=== PATIENT | female | born 1950 | race Hispanic/Latino ===

== ENCOUNTER 2017-01-24 14:00 | Emergency (ER) | payer MEDICARE ==
[~2017-01-24] VITALS: Ht 152.4 cm; Wt 57.2 kg
[2017-01-24] MEDS ORDERED: DIATRIZOATE MEGL/DIATRIZOA SOD 30 ML BTL PO ONE (14:57)
[2017-01-24 15:14] LABS: BILIRUBIN,URINE NEGATIVE (NEGATIVE); KETONES,URINE NEGATIVE (NEGATIVE); LEUKOCYTE ESTERASE ,URINE NEGATIVE (NEGATIVE); NITRITE,URINE NEGATIVE (NEGATIVE); PROTEIN,URINE DIPSTICK NEGATIVE (NEGATIVE); URINE UROBILINOGEN 0.2 mg/dL (0.2 - 1)
[2017-01-24 15:15] LABS: CLARITY,URINE SL CLOUDY (CLEAR); COLOR,URINE YELLOW (YELLOW)
[2017-01-24 15:19] LABS: BASOPHILS % 0.4 % (0.0-1.0); EOSINOPHILS # (AUTO) 0.1 (0.0-0.4); EOSINOPHILS % 0.9 % (0.0-6.0); HEMATOCRIT 44.7 % (34.2-44.1); HEMOGLOBIN 14.9 g/dL (12.0-16.0); LYMPHOCYTES # (AUTO) 2.3 (1.0-3.2); LYMPHOCYTES % 23.4 % (18.0-39.1); MEAN CORPUSCULAR HEMOGLOBIN 29.9 pg (28-32); MEAN CORPUSCULAR HGB CONC 33.3 g/dL (31-35); MEAN CORPUSCULAR VOLUME 89.8 fL (81-99); MONOCYTES # (AUTO) 0.4 (0.2-0.8); MONOCYTES % 4.6 % (4.4-11.3); NEUTROPHILS # (AUTO) 6.8 (2.1-6.9); NEUTROPHILS % 70.2 % (38.7-80.0); PLATELET COUNT 305 x10e3/uL (140-360); RED BLOOD COUNT 4.98 x10e6/uL (3.6-5.1); RED CELL DISTRIBUTION WIDTH 12.9 % (11.7-14.4)
[2017-01-24 15:37] LABS: BACTERIA,URINE RARE /HPF; EPITHELIAL CELLS,URINE RARE /LPF; RBC,URINE 0-5 /HPF (0-5); WBC,URINE (MAN) 0-5 /HPF (0-5)
[2017-01-24 15:42] LABS: ALANINE AMINOTRANSFERASE 24 IU/L (0-55); ALBUMIN 4.2 g/dL (3.5-5.0); ALBUMIN/GLOBULIN RATIO 1.1 (0.8-2.0); ALKALINE PHOSPHATASE 66 IU/L (40-150); ANION GAP 11.3 mmol/L (8-16); BLOOD UREA NITROGEN 13 mg/dL (7-26); BUN/CREATININE RATIO 14 (6-25); CALCIUM 9.8 mg/dL (8.4-10.2); CARBON DIOXIDE 27 mmol/L (22-29); CHLORIDE 108 mmol/L (98-107); CREATININE, SERUM 0.91 mg/dL (0.57-1.11); EST GLOMERULAR FILTRATION RATE > 60 ML/MIN (60-); GLUCOSE 100 mg/dL (74-118); POTASSIUM 3.3 mmol/L (3.5-5.1); SODIUM 143 mmol/L (136-145)
--- NOTE | 2017-01-24 16:45 | Diagnostic Imaging Report ---
EXAM: CT Abdomen and Pelvis WITH contrast INDICATION: Abdominal pain COMPARISON: None. TECHNIQUE: Abdomen and pelvis were scanned utilizing a multidetector helical scanner from the lung base to the pubic symphysis after administration of contrast. Coronal and sagittal reformations were obtained. Protocol: General survey IV CONTRAST: 100 mL of Isovue 370 ORAL CONTRAST: Gastroview 30 cc COMPLICATIONS: None RADIATION DOSE: Total Exam DLP: 214.6 mGy*cm. CTDIvol has been reviewed. It is below the limits set by the Radiation Protocol Committee (RPC). FINDINGS: LINES: None. Lower thorax: No parenchymal abnormality. No pneumothorax. No pleural effusion. Liver: No focal mass. No hepatomegaly. Normal parenchyma. The hepatic and portal veins are patent. Gallbladder: No gallstones. No gallbladder distention. Biliary tree: No intrahepatic duct dilation. No extrahepatic duct dilation. Spleen: No splenomegaly. No focal mass. Pancreas: Normal parenchymal enhancement. No focal mass. Normal pancreatic duct. No peripancreatic inflammatory changes. Kidneys: No obstructing calculi. No hydronephrosis. No solid enhancing mass. No cysts. No perinephric soft tissue inflammatory changes. Adrenal glands: 8.4 mm nodule in the left adrenal gland is indeterminate. No right adrenal nodule. Bladder: Normal urinary bladder. Pelvic organs: Normal left ovary. Hysterectomy. Right ovary is not visualized.. GI: No bowel wall thickening. No air-fluid levels. The stomach and small bowel are normal. The colon is normal. Normal appendix. A moderate amount of retained feces limits intraluminal evaluation of the colon. Peritoneum/retroperitoneum: No pneumoperitoneum. No ascites. No drainable fluid collection. Lymph nodes: No lymphadenopathy. Several subcentimeter noncalcified nonnecrotic lymph nodes are present in the mesentery. Vessels: The abdominal aorta and iliac vessels are patent. The celiac, superior mesenteric, and inferior mesenteric arteries are patent. Single bilateral renal arteries are patent. . Bones: No focal abnormality. . Soft tissues: No focal abnormality. IMPRESSION: No acute abnormality of the abdomen and pelvis. Indeterminate left adrenal nodule. Nonemergent CT of the abdomen with adrenal mass protocol may provide additional formation for further characterization. Signed by: Dr. Zackary Brewster M.D. on 01/24/2017 4:41 PM
[2017-01-24] MEDS ORDERED: IOPAMIDOL 370 MG/ML 200 ML INFUS..BTL INJ ONE (16:48)
[2017-01-24] MEDS ORDERED: SODIUM CHLORIDE 0.9% 50ML 50 ML ONE (16:48)
== END 2017-01-24 17:46 | disposition home or self-care (01) ==
LOC: ER 14:00
DX: R10.30 Lower abdominal pain, unspecified (principal)
CPT/HCPCS: 36415; 74177; 80053; 81001; 85025; 87086; 99284; Q9967

== ENCOUNTER → 2017-03-27 | Day surgery (SDC) | payer MEDICARE ==
[2017-03-24 14:57] LABS: BASOPHILS # (AUTO) 0.1 (0.0-0.1); BASOPHILS % 0.6 % (0.0-1.0); EOSINOPHILS # (AUTO) 0.1 (0.0-0.4); EOSINOPHILS % 1.6 % (0.0-6.0); HEMATOCRIT 44.2 % (34.2-44.1); HEMOGLOBIN 14.8 g/dL (12.0-16.0); LYMPHOCYTES # (AUTO) 3.4 (1.0-3.2); MEAN CORPUSCULAR HEMOGLOBIN 30.1 pg (28-32); MEAN CORPUSCULAR HGB CONC 33.5 g/dL (31-35); MONOCYTES # (AUTO) 0.4 (0.2-0.8); MONOCYTES % 4.2 % (4.4-11.3); NEUTROPHILS # (AUTO) 4.9 (2.1-6.9); NEUTROPHILS % 55.4 % (38.7-80.0); PLATELET COUNT 236 x10e3/uL (140-360); RED BLOOD COUNT 4.91 x10e6/uL (3.6-5.1); RED CELL DISTRIBUTION WIDTH 13.1 % (11.7-14.4)
[~2017-03-27] MED LIST: ATORVASTATIN CA20 MG PO; CALCIUM PO; CLARITIN-D 241 EACH PO; DICYCLOMINE HCL10 MG PO; FENTANYL CITRATE/PF 100MCG/2 ML INJ ONE; FOSAMAX70 MG PO; HYOSCYAMINE SULFATE 0.5 MG/ML AMP ONE; LIDOCAINE HCL 2% LOCAL INJ 5 ML SDV VIAL INJ ONE; MIDAZOLAM HCL 2 MG/2 ML VIAL ONE; OMEPRAZOLE40 MG PO; PROPOFOL IV EMULSION 10 MG/ML 50 ML VIAL ONE
--- OUTSIDE RECORDS SUMMARY | 2017-03-27 08:16 | XMS REPORT ---
[facility] Address Unknown Phone Unavailable Care Team Providers Care Life Sciences Teacher Name Role Phone NELDA JUAREZ Unavailable Unavailable Problems This patient has no known problems. Allergies, Adverse Reactions, Alerts This patient has no known allergies or adverse reactions. Medications This patient has no known medications. Results Test Description Test Time Test Comments Text Results Atomic Results Result Comments CT ABDOMEN/PELVIS W [place] [id number] [place] [id number] Patient Name: RICH CHEEK MR #: [id number] : 1950 Age/Sex: 66/F Req #: [id number] Adm Physician: Ordered by: NELDA JUAREZ MD Report #: [id number] Location: ER Room/Bed: Procedure: [id number] CT/CT ABDOMEN/PELVIS W Exam Date: 01/24/17 Exam Time : 1610 REPORT STATUS: Signed EXAM: CT Abdomen and Pelvis WITH contrast INDICATION: Abdominal pain COMPARISON: None. TECHNIQUE: Abdomen and pelvis were scanned utilizing a multidetector helical scanner from the lung base to the pubic symphysis after administration of contrast. Coronal and sagittal reformations were obtained. Protocol: General survey IV CONTRAST: 100 mL of Isovue 370 ORAL CONTRAST: Gastroview 30 cc COMPLICATIONS: None RADIATION DOSE: Total Exam DLP: 214.6 mGy*cm. CTDIvol has been reviewed. It is below the limits set by the Radiation Protocol Committee (RPC). FINDINGS: LINES: None. Lower thorax: No parenchymal abnormality. No pneumothorax. No pleural effusion. Liver: No focal mass. No hepatomegaly. Normal parenchyma. The hepatic and portal veins are patent. Gallbladder: No gallstones. No gallbladder distention. Biliary tree: No intrahepatic duct dilation. No extrahepatic duct dilation. Spleen: No splenomegaly. No focal mass. Pancreas: Normal parenchymal enhancement. No focal mass. Normal pancreatic duct. No peripancreatic inflammatory changes. Kidneys: No obstructing calculi. No hydronephrosis. No solid enhancing mass. No cysts. No perinephric soft tissue inflammatory changes. Adrenal glands: 8.4 mm nodule in the left adrenal gland is indeterminate. No right adrenal nodule. Bladder: Normal urinary bladder. Pelvic organs: Normal left ovary. Hysterectomy. Right ovary is not visualized.. GI: No bowel wall thickening. No air-fluid levels. The stomach and small bowel are normal. The colon is normal. Normal appendix. A moderate amount of retained feces limits intraluminal evaluation of the colon. Peritoneum/retroperitoneum: No pneumoperitoneum. No ascites. No drainable fluid collection. Lymph nodes: No lymphadenopathy. Several subcentimeter noncalcified nonnecrotic lymph nodes are present in the mesentery. Vessels: The abdominal aorta and iliac vessels are patent. The celiac, superior mesenteric, and inferior mesenteric arteries are patent. Single bilateral renal arteries are patent. . Bones: No focal abnormality. . Soft tissues: No focal abnormality. IMPRESSION: No acute abnormality of the abdomen and pelvis. Indeterminate left adrenal nodule. Nonemergent CT of the abdomen with adrenal mass protocol may provide additional formation for further characterization. Signed by: Dr. Ellie Middleton M.D. on 01/24/2017 4:41 PM Dictated By: ELLIE MIDDLETON MD 40 Transcribed By: TRACEY on 01/24/171640 COPY TO: NELDA JUAREZ MD
--- NOTE | 2017-03-27 11:43 | Operative Report ---
DATE OF PROCEDURE: March 27, 2017 REFERRING PHYSICIAN: Brian Del Rio MD PROCEDURES PERFORMED 1. Esophagogastroduodenoscopy with esophageal dilatation. 2. Colonoscopy with polypectomy. INDICATIONS FOR ESOPHAGOGASTRODUODENOSCOPY: Dysphagia, history of heartburn. INDICATIONS FOR COLONOSCOPY: Colorectal cancer screening. MEDICATION: Patient was done under MAC. Please see anesthesiologist's note. PROCEDURE: With the patient in left lateral decubitus position, flexible fiberoptic Olympus gastroscope was introduced into the esophagus under direct visualization without any difficulty. There was some patchy erythema noted in distal esophagus. There was a mild stricture noted at the GE junction that was dilated to a size 52-Israeli Guzman. The scope was then advanced with ease into the stomach. Mucosa overlying the antrum and the body revealed some patchy erythema and lsum-sb-rydeevky edema and biopsies were obtained sent to stain for H. pylori. An approximately 7-mm submucosal nodule was noted in the antrum that was biopsied. The pylorus was of normal contour and shape. It was intubated with ease and the scope was advanced all way to the 2nd portion of the duodenum. The scope was then withdrawn slowly and mucosa overlying the proximal 2nd portion and the duodenal bulb grossly appeared to be within normal limits. The scope was then withdrawn back into the stomach and retroflexion mucosa overlying the fundus and cardia appeared to be within normal limits. The scope was then straightened out. The stomach was decompressed. Scope was subsequently withdrawn. Patient tolerated the procedure well. IMPRESSION 1. Distal esophagitis. 2. Esophageal stricture at gastroesophageal junction dilated to a size 52-Israeli Guzman. 3. Gastritis biopsied. Biopsies sent to stain for H. pylori. 4. Approximately 7-mm submucosal nodule with normal overlying mucosa biopsied. PLAN: Follow up histology. Initiate Protonix 40 mg 1 p.o. q.a.m. a.c. Patient was then turned around and, after adequate lubrication of the anal canal, a flexible fiberoptic Olympus colonoscope was inserted into the rectum with ease and advanced all the way to the cecum. The scope was then withdrawn slowly. Mucosa overlying the cecum appeared to be within normal limits. One polyp was snared from the ascending colon. Two polyps were hot biopsied from the transverse colon. The descending sigmoid and rectum grossly appeared to be within normal limits. The scope was then retroflexed into the distal rectum and small internal hemorrhoids were noted, none of which was actively bleeding. The scope was then straightened out and was subsequently withdrawn. Patient tolerated the procedure well. IMPRESSION 1. Ascending colon polyp, snared. 2. Transverse colon polyps x2, hot biopsied. 3. Internal hemorrhoids, none actively bleeding. PLAN: Follow up histology. Initiate high-fiber low-fat diet. Initiate high-fiber supplement. Patient will need a followup colonoscopy in 3 years. Job#: [id number] VAS cc:Dr. Brian Del Rio
== END | disposition home or self-care (01) ==
LOC: OR 08:14
PROVIDERS: ATTEND Internal Medicine Gastroenterology
DX: Z12.11 Encounter for screening for malignant neoplasm of colon (principal); K29.50 Unspecified chronic gastritis without bleeding; D12.2 Benign neoplasm of ascending colon; K20.9 Esophagitis, unspecified; K22.2 Esophageal obstruction; K31.89 Other diseases of stomach and duodenum; K21.9 Gastro-esophageal reflux disease without esophagitis; K64.8 Other hemorrhoids; M54.9 Dorsalgia, unspecified; E78.5 Hyperlipidemia, unspecified; Z01.810 Encounter for preprocedural cardiovascular examination; Z01.812 Encounter for preprocedural laboratory examination
CPT/HCPCS: 36415; 43239; 43450; 45384; 45385; 85025; 88305; 88312; 93005; J1980; J2001; J2250

== ENCOUNTER 2017-04-01 13:50 | Emergency (ER) | payer MEDICARE ==
[~2017-04-01] VITALS: Ht 152.4 cm; Wt 57.2 kg
[~2017-04-01 13:50] MED LIST changes: -FENTANYL CITRATE/PF 100MCG/2 ML INJ ONE; -HYOSCYAMINE SULFATE 0.5 MG/ML AMP ONE; -LIDOCAINE HCL 2% LOCAL INJ 5 ML SDV VIAL INJ ONE; -MIDAZOLAM HCL 2 MG/2 ML VIAL ONE; -PROPOFOL IV EMULSION 10 MG/ML 50 ML VIAL ONE
--- NOTE | 2017-04-01 16:50 | Diagnostic Imaging Report ---
History: Throat pain status post EGD Comparison studies: None Technique: Axial images were obtained from the skull base to the thoracic inlet. Coronal and sagittal images reconstructed from the axial data. Intravenous contrast: None Findings: Evaluation of the neck is limited due to the absence of intravenous contrast. In spite of this limitation, Soft tissues: No abnormalities. Lymph nodes: No radiographically significant adenopathy. Vessels: Cannot evaluate. Glands (thyroid, parotid and submandibular): Normal in size and symmetric. No masses. Orbits: No abnormalities. A right lens prosthesis is seen. Paranasal sinuses: Clear. Temporal bones: No abnormalities. Skull base and facial bones: Intact. Cervical spine: Mild degenerative changes from C5 through C7. Image thorax: 2 cm round glass opacity in the posterior left upper lobe (series 4 image 13). IMPRESSION: 1. No findings to suggest esophageal perforation on this exam. Please note, a CT Neck without contrast is suboptimal for the evaluation of esophageal perforation. A esophagogram may be performed for further evaluation if clinically indicated. 2. 2 cm groundglass opacity in the left upper lobe. Per the latest Demar criteria, a follow-up CT chest in 6 months is recommended. Signed by: Dr. Alyssa Butler M.D. on 04/01/2017 9:39 PM
[2017-04-01] MEDS ORDERED: DIATRIZOATE MEGL/DIATRIZOA SOD 120 ML BTL PO ONE (18:23)
--- NOTE | 2017-04-01 19:07 | Diagnostic Imaging Report ---
PROCEDURE: Single contrast esophagram TECHNIQUE: Under fluoroscopic guidance, the patient swallowed barium and multiple images were obtained. Radiation dose: Fluoroscopy time: 1.5 minutes Dose (Kerma) Area Product: 1.805 mGy*cm2 COMPARISON: No relevant priors. Correlation is made with CT of the neck performed 1537 hrs. INDICATIONS: EGD 03/27/17 with subsequent pharyngeal pain when swallowing solids but not liquids. FINDINGS: Pharynx: The patient swallows normally. The pharynx appears normal. Esophagus: There is no evidence of perforation. The esophagus is normally distensible and the mucosa was within normal limits. No stricture. Esophageal motility is within normal limits. Gastroesophageal junction: There is no evidence of hiatal hernia. IMPRESSION: No evidence of esophageal perforation or other fluoroscopic abnormality to explain dysphagia. Dictated by: Dennys Ackerman M.D. on 04/01/2017 at 19:06 Electronically approved by: Dennys Ackerman M.D. on 04/01/2017 at 19:06
[2017-04-01 19:57] VITALS: BP 149/93
== END 2017-04-01 20:00 | disposition home or self-care (01) ==
LOC: ER 13:50
DX: R07.0 Pain in throat (principal); J02.9 Acute pharyngitis, unspecified; E78.5 Hyperlipidemia, unspecified; M81.0 Age-related osteoporosis without current pathological fracture
CPT/HCPCS: 70490; 74220; 99283; Q9963

== ENCOUNTER → 2017-09-08 | Outpatient (CLI) | payer MEDICARE ==
--- NOTE | 2017-09-08 09:33 | Diagnostic Imaging Report ---
PROCEDURE: CT CHEST WITHOUT CONTRAST CT scan of the chest WITHOUT intravenous contrast, using standard protocol. TECHNIQUE: The chest was scanned utilizing a multidetector helical scanner from the apex to the level of the adrenal glands. No IV contrast was administered because of referring physician request. Coronal and sagittal multiplanar reformations were obtained. COMPARISON: CT neck soft tissue 04/01/2017. INDICATIONS: FOLLOW UP ON LUNG NODULE FINDINGS: Lines/tubes: None. Lungs and Airways: Marginal interval increase in size of mixed groundglass and solid nodule in the apicoposterior segment of the left upper lobe, abutting the major fissure, now measuring 1.9 cm oblique AP by 1.7 cm oblique transverse (previously 1.5 cm oblique AP by 1.6 cm oblique transverse). Subcentimeter groundglass nodule anteriorly in the right upper lobe (series 3, image 22, is unchanged in size compared to the prior CT. Right upper lobe calcified granuloma. Juxtapleural-paramediastinal fibrotic changes in the inferior lingula and medial segment of the right middle lobe. 3-4 mm groundglass opacity in the lateral aspect of the right lower lobe (series 3 image 83). 3-4 mm solid nodule superior segment right lower lobe (series 3 image 55). No consolidation. No bronchiectasis. Trachea, mainstem bronchi, and central lobar and segmental bronchi are patent. Pleura: No pleural effusion or pneumothorax. Heart and mediastinum: The visualized portions of the thyroid gland appear normal. No axillary, hilar, or mediastinal lymphadenopathy by size criteria. Pulmonary outflow tract is of normal caliber. No ectasia or aneurysmal dilatation of the thoracic aorta. Great vessel origins are normal in caliber and configuration. Atherosclerotic coronary artery calcifications. No paracardial effusion. Normal heart size. Soft tissues: No focal soft tissue abnormalities Abdomen: Visualized portions of the liver, spleen, adrenals, pancreas, and upper poles of the kidneys are unremarkable. Bones: No osseous destructive lesions. 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 Tissue diagnosis is suggested. Additional subcentimeter solid and groundglass nodules may be assessed for stability by subsequent cross sectional imaging examinations. Atherosclerotic vascular disease. Dictated by: Dez Benito M.D. on 09/08/2017 at 9:38 Electronically approved by: Dez Benito M.D. on 09/08/2017 at 9:38
--- NOTE | 2017-09-08 11:17 | Diagnostic Imaging Report ---
PROCEDURE:BONE DXA DUAL ENERGY INDICATION: Postmenopausal osteoporosis screening The patient history questionnaire was completed and is available on PACS. COMPARISON:None. FINDINGS: Evaluation of the left hip and lumbar spine was performed utilizing DEXA Hologic bone densitometer. The study is technically adequate. The patient's fracture risk is compared to an age-matched control. The patient denies prior surgery/fracture of the spine, hips or forearm. Left femoral neck bone mineral density: 0.706 g/cm2, T-score is -1.4, Z-score is 0.1. Left total hip bone mineral density: 0.807 g/cm2, T-score is -1.2, Z-score is 0.0. Lumbar spine total bone mineral density: 0.765 g/cm2, T-score is -2.6, Z-score is -0.7. IMPRESSION: Bone mineralization by WHO Classification is osteoporosis. Fracture risk is high. Correlate clinically for the necessity and timing of the next bone mineral density study. Dictated by: Enrico Meza M.D. on 09/08/2017 at 11:22 Electronically approved by: Enrico Meza M.D. on 09/08/2017 at 11:22
== END ==
LOC: DX 08:03
PROVIDERS: ATTEND Internal Medicine
DX: M81.0 Age-related osteoporosis without current pathological fracture (principal); R91.8 Other nonspecific abnormal finding of lung field
CPT/HCPCS: 71250; 77080

== ENCOUNTER → 2017-10-15 | Outpatient (CLI) | payer MEDICARE ==
[~2017-10-15] MED LIST changes: +FENTANYL CITRATE/PF 100MCG/2 ML INJ ONE; +MIDAZOLAM HCL 2 MG/2 ML VIAL ONE
[2017-10-15 08:57] LABS: INR 1.02; PROTHROMBIN TIME 12.6 seconds (11.9-14.5)
[2017-10-15 08:58] LABS: PARTIAL THROMBOPLASTIN TIME 25.5 seconds (23.8-35.5)
--- NOTE | 2017-10-15 12:48 | Diagnostic Imaging Report ---
EXAMINATION: CHEST XRAY POST PROCEDURE INDICATION: Status post lung biopsy COMPARISON: Same day CT lung biopsy 10/15/17; CT Chest without contrast 09/08/17. FINDINGS: TUBES and LINES: None. LUNGS: Lungs are well inflated. There is no evidence of pneumonia or pulmonary edema. Nodular opacity in the left upper lobe. Additional lung nodules described on chest CT from 09/08/17 are not well seen by radiograph. PLEURA: No pleural effusion or pneumothorax. HEART AND MEDIASTINUM: The cardiomediastinal silhouette is unremarkable. BONES AND SOFT TISSUES: No acute osseous lesion. Soft tissues are unremarkable. UPPER ABDOMEN: No free air under the diaphragm. IMPRESSION: No evidence of pneumothorax status post left sided lung nodule biopsy. Nodular opacity in the left upper lobe, corresponding to known lung nodule and perilesional hemorrhagic products noted on same day lung biopsy CT. Signed by: Dr. Daniel Cook MD on 10/15/2017 12:45 PM
--- NOTE | 2017-10-15 15:48 | Diagnostic Imaging Report ---
PROCEDURE: CT GUIDED BIOPSY OF LEFT UPPER LOBE PULMONARY NODULE COMPARISON: None. INDICATIONS: LEFT UPPER LOBE PULMONARY NODULE MEDICATIONS:15 ml 1% lidocaine EBL: < 5 ml SPECIMEN: Given to pathology DESCRIPTION OF PROCEDURE: Informed consent was obtained. The patient was positioned in prone position with the left shoulder internally rotated to move the scapula laterally. The CT was angled at 15 degrees initially and subsequently 20 degrees to obtain or nurse manager images of the left upper lobe nodule and attempt to avoid crossing the major fissure. Once a satisfactory trajectory was determined, the patient's left upper back was prepped and draped in standard sterile fashion. The skin was anesthetized with lidocaine. Using CT guidance, a 12.5 cm x 19 gauge Chiba needle was advanced into the lesion. The patient took a deep breath during needle insertion into the pleural space and the major fissure position changed, therefore leading the needle to cross the major fissure into the lesion. A single 22 gauge fine needle aspirate was obtained. Subsequently, several core biopsy samples with a 20 gauge device was taken with CT guidance. Pathology was present for the procedure and confirmed satisfactory sample for diagnosis. The introducer needle was removed and a sterile bandage was placed. Repeat CT demonstrated a small amount of perilesional hemorrhagic products and a trace pneumothorax. The patient was positioned supine onto the stretcher post procedurally. The patient's vital signs were stable post procedurally and there was no evidence of immediate complication. CONCLUSION: CT guided left upper lobe pulmonary nodule biopsy as above. Dictated by: CELIA DEAN M.D. on 10/15/2017 at 15:26 Electronically approved by: CELIA DEAN M.D. on 10/15/2017 at 15:26
--- NOTE | 2017-10-15 15:54 | Diagnostic Imaging Report ---
EXAMINATION: CHEST XRAY POST PROCEDURE INDICATION: Status post lung biopsy. COMPARISON: Chest radiograph 10/15/17 at 1224 PM. FINDINGS: TUBES and LINES: None. LUNGS: Lungs are well inflated. There is no evidence of pneumonia or pulmonary edema. Nodular opacity in the left upper lobe. Additional lung nodules described on chest CT from 09/08/17 are not well seen by radiograph. PLEURA: No pleural effusion or pneumothorax. HEART AND MEDIASTINUM: The cardiomediastinal silhouette is unremarkable. BONES AND SOFT TISSUES: No acute osseous lesion. Soft tissues are unremarkable. UPPER ABDOMEN: No free air under the diaphragm. IMPRESSION: No evidence of pneumothorax status post left sided lung nodule biopsy. Similar appearance of nodular opacity in the left upper lobe, corresponding to known lung nodule and perilesional hemorrhagic products noted on same day lung biopsy CT. Signed by: Dr. Daniel Cook MD on 10/15/2017 3:51 PM
== END ==
LOC: CT 08:18
PROVIDERS: ATTEND Internal Medicine Critical Care Medicine
DX: R91.1 Solitary pulmonary nodule (principal)
CPT/HCPCS: 32405; 36415; 71045; 77012; 85049; 85610; 85730; 88112; 88305; J2250

== ENCOUNTER 2017-12-09 17:33 | Inpatient (IN) | payer MEDICARE ==
[2017-12-09] VITALS (8 sets, daily range): BP systolic 144–159; BP diastolic 60–87
[~2017-12-09] VITALS: Ht 152.4 cm; Wt 63.8 kg
[~2017-12-09 17:33] MED LIST changes: -FENTANYL CITRATE/PF 100MCG/2 ML INJ ONE; -MIDAZOLAM HCL 2 MG/2 ML VIAL ONE
--- OUTSIDE RECORDS SUMMARY | 2017-12-09 17:36 | XMS REPORT | Clinical Summary ---
Author Author [facility] Address Unknown Phone Unavailable Care Team Providers Care Desizing Machine Offbearer Name Role Phone Asked, No Pcp PCP Unavailable Allergies Active Allergy Reactions Severity Noted Date Comments Codeine 11/26/2017 WEAKNESS AND FEELS LIKE SHE IS GOING TO FAINT. Current Medications Prescription Sig. Disp. Refills Start End Date Status Date atorvastatin (LIPITOR) 40 Take 40 mg by mouth Active MG tablet daily. omeprazole (PriLOSEC) 40 Take 40 mg by mouth Active MG capsule daily. ergocalciferol (VITAMIN Take 50,000 Units by Active D2) 50,000 unit capsule mouth once a week. CALCIUM ORAL Take 600 mg by mouth 3 Active (three) times a day as needed. alendronate (FOSAMAX) 70 Take 70 mg by mouth every Active MG tablet 7 days. Take in the morning with a full glass of water on an empty stomach, do NOT take anything else by mouth or lie down for the next 30 min. loratadine (CLARITIN) 10 Take 10 mg by mouth Active mg tablet daily. acetaminophen (TYLENOL) Take 2 tablets (650 mg 30 tablet 0 12/08/19 01/07/20 Active 325 MG tabletIndications: total) by mouth every 6 18 18 Fever (six) hours as needed for fever (GREATER than 100.4) for up to 30 days. traMADol (ULTRAM) 50 mg Take 1 tablet (50 mg 30 tablet 0 12/08/19 12/15/19 Active tablet total) by mouth every 6 18 18 (six) hours as needed for moderate pain for up to 7 days. Active Problems Problem Noted Date Nodule of left lung 12/01/2017 Encounters Date Type Specialty Care Team Description 12/01/2017 [facility] Cardiology Elio Mabry MD Nodule of left lung - Encounter (Primary Dx); 12/07/2017 Mass in chest 12/01/2017 Procedure Pass Cardiothoracic Surgery 12/01/2017 Surgery Cardiothoracic Surgery Elio Mabry MD CERVICAL MEDIASTINOSCOPY 11/26/2017 Pre-Admit Pre-Admission Testing Elio Mabry MD Preop testing (Primary Testing Dx) Appointment 11/26/2017 Anesthesia Cardiothoracic Surgery Fracisco Michele PROPERTY MASTER Event after 12/08/2016 Social History Tobacco Use Types Packs/Day Years Used Date Never Smoker Smokeless Tobacco: Never Used Alcohol Use Drinks/Week oz/Week Comments No Sex Assigned at Date Recorded Not on file Last Filed Vital Signs Vital Sign Reading Time Taken Blood Pressure 115/71 12/07/2017 11:34 AM CDT Pulse 73 12/07/2017 11:34 AM CDT Temperature 36.7 C (98 F) 12/07/2017 11:34 AM CDT Respiratory Rate 19 12/07/2017 11:34 AM CDT Oxygen Saturation 100% 12/07/2017 11:34 AM CDT Inhaled Oxygen - - Concentration Weight 58.1 kg (128 lb 1.6 oz) 12/07/2017 4:35 AM CDT Height 152.4 cm (5') 12/01/2017 6:08 AM CDT Body Mass Index 25.02 12/07/2017 4:35 AM CDT Plan of Treatment Health Maintenance Due Date Last Done Comments BREAST CANCER SCREENING 07/11/2001 COLON CANCER SCREENING 07/11/2001 SHINGRIX VACCINE (#1) 07/11/2001 ZOSTER VACCINE 2011 PNEUMOCOCCAL 07/11/2016 POLYSACCHARIDE VACCINE AGE 65 AND OVER PNEUMOCOCCAL-13 07/11/2016 INFLUENZA VACCINE 09/09/2017 Implants Implanted Type Area Ui Designer Device Expiration Model / Identifier Date Serial / Lot Clip Ligtng Davidck Hemoclip Plus W/ Medical N/A: N/A TELEFLEX [id number] / Tape Ti Lg - [id number] Clips for MEDICAL / Implanted: 12/01/2017 (Quantity not Internal on file) Use [place] Perph Vasclr Ptfe 1.2x10cm Vascular N/A: N/A BARD PERIPHERAL 08/06/2022 [id number] / 1.65mm - [id number] Graft VASCULAR / Implanted: 12/01/2017 (Quantity not [id number] on file) Procedures Procedure Name Priority Date/Time Associated Diagnosis Comments ESTIMATED GFR Routine 12/07/2017 Results for this 4:47 AM CDT procedure are in the results section. BASIC METABOLIC PANEL Routine 12/07/2017 Results for this 4:47 AM CDT procedure are in the results section. PHOSPHORUS LEVEL Routine 12/07/2017 Results for this 4:47 AM CDT procedure are in the results section. MAGNESIUM LEVEL Routine 12/07/2017 Results for this 4:47 AM CDT procedure are in the results section. HC COMPLETE BLD COUNT Routine 12/07/2017 Results for this W/AUTO DIFF 4:47 AM CDT procedure are in the results section. XR CHEST 1 VW PORTABLE Routine 12/04/2017 Results for this 1:39 PM CDT procedure are in the results section. XR CHEST 1 VW PORTABLE Routine 12/04/2017 Results for this 8:43 AM CDT procedure are in the results section. XR CHEST 1 VW PORTABLE Routine 12/03/2017 Results for this 8:49 AM CDT procedure are in the results section. ESTIMATED GFR Routine 12/03/2017 Results for this 5:51 AM CDT procedure are in the results section. PHOSPHORUS LEVEL Routine 12/03/2017 Results for this 5:51 AM CDT procedure are in the results section. IONIZED CALCIUM Routine 12/03/2017 Results for this 5:51 AM CDT procedure are in the results section. MAGNESIUM LEVEL Routine 12/03/2017 Results for this 5:51 AM CDT procedure are in the results section. CBC HEMOGRAM Routine 12/03/2017 Results for this 5:51 AM CDT procedure are in the results section. BASIC METABOLIC PANEL Routine 12/03/2017 Results for this 5:51 AM CDT procedure are in the results section. POC GLUCOSE Routine 12/02/2017 Results for this 5:40 PM CDT procedure are in the results section. POC GLUCOSE Routine 12/02/2017 Results for this 11:53 AM CDT procedure are in the results section. POC GLUCOSE Routine 12/02/2017 Results for this 7:48 AM CDT procedure are in the results section. XR CHEST 1 VW PORTABLE Routine 12/02/2017 Results for this 7:01 AM CDT procedure are in the results section. POC GLUCOSE Routine 12/02/2017 Results for this 4:11 AM CDT procedure are in the results section. POC GLUCOSE Routine 12/02/2017 Results for this 12:05 AM CDT procedure are in the results section. POC GLUCOSE Routine 12/01/2017 Results for this 8:06 PM CDT procedure are in the results section. ECG 12-LEAD STAT 12/01/2017 Results for this 6:01 PM CDT procedure are in the results section. POC GLUCOSE Routine 12/01/2017 Results for this 4:24 PM CDT procedure are in the results section. XR CHEST 1 VW PORTABLE STAT 12/01/2017 Results for this 4:09 PM CDT procedure are in the results section. SURGICAL PATHOLOGY Routine 12/01/2017 Results for this REQUEST 9:32 AM CDT procedure are in the results section. CENTRAL LINE Routine 12/01/2017 8:57 AM CDT Procedure Note - Jose Raul Parr MD - 12/01/2017 8:57 AM CDT Central line Performed by: JACOB ALEXANDER Authorized by: JOSE RAUL PARR Patient Location: OR Start Time: 12/01/2017 8:20 AM End Time: 12/01/2017 8:27 AM Staff: Anesthesio logist: JOSE RAUL PARR Resident/C RNA/AA: JENN EWING Performed by: Anesthesio logisjanis Preprocedu re:patient identified , IV checked, site and side verified, risks and benefits discussed, procedure verified, surgical consent complete, patient position confirmed, monitors and equipment checked and pre-op evaluation complete MSBT: antiseptic used during central venous catheter insertion, all elements of maximal sterile barrier technique followed, hand hygiene performed prior to central venous catheter insertion, cap/gown used by other personnel during central venous catheter insertion, solutions labeled and all ports not used during insertion clamped Indication s: Indication s: Vascular access Anesthesia : Anesthesia : General Procedure details: Patient position: Trendelenb urg Catheter Type: Double lumen Catheter Size: 8 Fr Catheter Site: internal jugular vein Catheter site laterality : Left Ultrasound guidance used: Yes Ultrasound image saved: Yes Number of attempts: 1 Successful placement: Yes Guidewire removal: Guidewire removal is confirmed Guidewire removal witnessed by: JACOB ALEXANDER Post-proce dure: Post-proce dure: line sutured, sterile dressing applied per protocol and ports flushed with saline Post-proce dure: Blood cleaned with CHG and sterile caps on all hubs Assessment : Blood return through all ports and free fluid flow Patient tolerance: Patient tolerated the procedure well with no immediate complicati ons VT AN ELECTIVE Routine 12/01/2017 ENDOTRACHEAL AIRWAY 8:55 AM CDT Procedure Note - Jose Raul Parr MD - 12/01/2017 8:55 AM CDT Airway Date/Time: 12/01/2017 8:03 AM Performed by: JACOB ALEXANDER Authorized by: JOSE RAUL PARR Location: OR Urgency: Elective Difficult Airway: No Anesthesio logist: JOSE RAUL PARR Performed by: yonas sorensen Preoxygena ever with 100% O2: Yes C-spine Precaution s Maintained Throughout : Yes Mask Ventilatio n: Easy mask Final Airway Type: Endotrache al airway Final Endotrache al Airway: ETT Cuffed: Yes Technique Used: Direct laryngosco py Devices/Me thods Used in Placement: Intubatin g stylet Insertion Site: Oral Blade Type: Martin Laryngosco pe Blade/Vide olaryngosc ope Blade Size: 2 ETT Size (mm): 8.0 Cuff at minimum occlusion pressure: Yes Measured from: Teeth ETT to Teeth (cm): 21 Placement Verified by: CO2 detection and direct visualizat ion Laryngosco pic view: Grade IIa - partial view of glottis Rapid Sequence Induction (RSI): No Modified RSI: No Number of Attempts at Approach: 1 Atraumati c, no injury to teeth oropharynx or vocal cords ARTERIAL LINE Routine 12/01/2017 8:29 AM CDT Procedure Note - Jose Raul Parr MD - 12/01/2017 8:29 AM CDT Arterial line Performed by: JACOB ALEXANDER Authorized by: ELIO MABRY Staff: Yonas sorensen: JOSE RAUL PARR Resident/C RNA/AA: JACOB ALEXANDER Performed by: Yonas sorensen Pre-proced ure: patient identified , IV checked, site and side verified, risks and benefits discussed, procedure verified, surgical consent complete, patient position confirmed, monitors and equipment checked and pre-op evaluation complete MSBT: antiseptic used, all elements of maximal sterile barrier technique followed, hand hygiene performed, cap/gown used by other personnel and solutions labeled Indication s: Indication s: hemodynami c monitoring Anesthesia : Anesthesia : General Procedure Details: Arterial Line placement: Placed post induction Line placement site: Radial Line placement side: Right Arterial line gauge: 20 G Number of attempts: 1 Ultrasound guidance used: No Post-proce dure: Post-proce dure: Sterile dressing applied Post procedure circulatio n, sensation, movement: Normal Patient tolerance: Patient tolerated the procedure well with no immediate complicati ons ECG PRE/POST OP Routine 11/26/2017 Preop testing Results for this 12:40 PM CDT procedure are in the results section. ESTIMATED GFR Routine 11/26/2017 Results for this 12:21 PM CDT procedure are in the results section. COMPREHENSIVE METABOLIC Routine 11/26/2017 Preop testing Results for this PANEL 12:21 PM CDT procedure are in the results section. HC COMPLETE BLD COUNT Routine 11/26/2017 Preop testing Results for this W/AUTO DIFF 12:21 PM CDT procedure are in the results section. after 12/08/2016 Results * Estimated GFR (12/07/2017 4:47 AM) Only the most recent of 3 results within the time period is included. Estimated GFR >=90 mL/min/1.73 m2 [facility] DEPARTMENT OF Comment: PATHOLOGY AND [employer] GENOMIC MEDICINE rpretation G1 >=90 Normal or high G2 60-89Mildly decreased [id number] Mildly to moderately decreased [id number] Moderately to severely decreased G4 15-29Severely decreased G5 <15Kidney failure The eGFR was calculated using the Chronic Kidney Disease Epidemiology Collaboration (CKD-EPI) equation. Interpretation is based on recommendations of the National Kidney Foundation-Kidney Disease Outcomes Quality Initiative (NKF-KDOQI) published in 2014. Specimen Plasma specimen Performing Organization Address City/State/Zipcode Phone Number [facility] DEPARTMENT OF [address] [place] [address] PATHOLOGY AND GENOMIC MEDICINE * CBC with platelet and differential (12/07/2017 4:47 AM) Only the most recent of 2 results within the time period is included. WBC 12.86 (H) 4.50 - 11.00 k/uL [facility] DEPARTMENT OF PATHOLOGY AND GENOMIC MEDICINE RBC 4.18 (L) 4.20 - 5.50 m/uL [facility] DEPARTMENT OF PATHOLOGY AND GENOMIC MEDICINE HGB 12.3 12.0 - 16.0 g/dL [facility] DEPARTMENT OF PATHOLOGY AND GENOMIC MEDICINE HCT 38.1 37.0 - 47.0 % [facility] DEPARTMENT OF PATHOLOGY AND GENOMIC MEDICINE MCV 91.1 82.0 - 100.0 fL [facility] DEPARTMENT OF PATHOLOGY AND GENOMIC MEDICINE MCH 29.4 27.0 - 34.0 pg [facility] DEPARTMENT OF PATHOLOGY AND GENOMIC MEDICINE MCHC 32.3 31.0 - 37.0 g/dL [facility] DEPARTMENT OF PATHOLOGY AND GENOMIC MEDICINE RDW - SD 43.7 37.0 - 55.0 fL [facility] DEPARTMENT OF PATHOLOGY AND GENOMIC MEDICINE MPV 9.9 8.8 - 13.2 fL [facility] DEPARTMENT OF PATHOLOGY AND GENOMIC MEDICINE Platelet count 297 150 - 400 k/uL [facility] DEPARTMENT OF PATHOLOGY AND GENOMIC MEDICINE Nucleated RBC 0.00 /100 WBC [facility] DEPARTMENT OF PATHOLOGY AND GENOMIC MEDICINE Neutrophils 58.1 39.0 - 69.0 % [facility] DEPARTMENT OF PATHOLOGY AND GENOMIC MEDICINE Lymphocytes 29.1 25.0 - 45.0 % [facility] DEPARTMENT OF PATHOLOGY AND GENOMIC MEDICINE Monocytes 7.4 0.0 - 10.0 % [facility] DEPARTMENT OF PATHOLOGY AND GENOMIC MEDICINE Eosinophils 3.0 0.0 - 5.0 % [facility] DEPARTMENT OF PATHOLOGY AND GENOMIC MEDICINE Basophils 0.5 0.0 - 1.0 % [facility] DEPARTMENT OF PATHOLOGY AND GENOMIC MEDICINE Immature granulocytes 1.9 (H)Comment: "Immature 0.0 - 1.0 % [facility] DEPARTMENT OF granulocytes" (promyelocytes, PATHOLOGY AND myelocytes, metamyelocytes) GENOMIC MEDICINE Performing Organization Address City/[facility] [place] [address] PATHOLOGY AND GENOMIC MEDICINE * Phosphorus level (12/07/2017 4:47 AM) Only the most recent of 2 results within the time period is included. Phosphorus 3.1 2.4 - 4.5 mg/dL [facility] DEPARTMENT OF PATHOLOGY AND GENOMIC MEDICINE Specimen Plasma specimen Performing Organization Address City/[facility] [place] [address] PATHOLOGY AND [facility] * Magnesium level (12/07/2017 4:47 AM) Only the most recent of 2 results within the time period is included. Magnesium 1.9 1.6 - 2.4 mg/dL [facility] DEPARTMENT OF PATHOLOGY AND GENOMIC MEDICINE Specimen Plasma specimen Performing Organization Address [facility] [place] [address] PATHOLOGY AND GENOMIC MEDICINE * Basic metabolic panel (12/07/2017 4:47 AM) Only the most recent of 2 results within the time period is included. Sodium 135 135 - 148 mEq/L [facility] DEPARTMENT OF PATHOLOGY AND GENOMIC MEDICINE Potassium 4.1 3.5 - 5.0 mEq/L [facility] DEPARTMENT OF PATHOLOGY AND GENOMIC MEDICINE Chloride 97 (L) 98 - 112 mEq/L [facility] DEPARTMENT OF PATHOLOGY AND GENOMIC MEDICINE CO2 24 24 - 31 mEq/L [facility] DEPARTMENT OF PATHOLOGY AND GENOMIC MEDICINE Anion gap 14@ANIO 7 - 15 mEq/L [facility] DEPARTMENT OF PATHOLOGY AND GENOMIC MEDICINE BUN 12 8 - 23 mg/dL [facility] DEPARTMENT OF PATHOLOGY AND GENOMIC MEDICINE Creatinine 0.66 0.50 - 0.90 mg/dL [facility] DEPARTMENT OF PATHOLOGY AND GENOMIC MEDICINE Glucose 92 65 - 99 mg/dL [facility] DEPARTMENT OF PATHOLOGY AND GENOMIC MEDICINE Calcium 9.7 8.8 - 10.2 mg/dL [facility] DEPARTMENT OF PATHOLOGY AND GENOMIC MEDICINE Specimen Plasma specimen Performing Organization Address City/State/Zipcode Phone Number [facility] DEPARTMENT OF [address] [place] [address] PATHOLOGY AND GENOMIC MEDICINE * XR Chest 1 Vw Portable (12/04/2017 1:39 PM) Only the most recent of 5 results within the time period is included. Narrative Performed At EXAMINATION:XR CHEST 1 VW PORTABLE [facility] CLINICAL HISTORY:chest tube removal COMPARISON:December 04, 2017 IMPRESSION: The left chest tube has been removed.Fractured ribs are noted at the apex.There some patchy atelectatic change at the lung base.There is no pneumothorax. There is continued mediastinal widening and prominence of the left hilum overall increased since the previous exam. The right lung aranda are clear except for some linear basilar atelectasis. [facility]-[id number] Procedure Note Hm Interface, Radiology Results Incoming - 12/04/2017 2:29 PM CDT EXAMINATION: XR CHEST 1 VW PORTABLE CLINICAL HISTORY: chest tube removal COMPARISON: December 04, 2017 IMPRESSION: The left chest tube has been removed. Fractured ribs are noted at the apex. There some patchy atelectatic change at the lung base. There is no pneumothorax. There is continued mediastinal widening and prominence of the left hilum overall increased since the previous exam. The right lung aranda are clear except for some linear basilar atelectasis. [facility]-[id number] Performing Organization Address City/[facility]/[place] [address] * CBC hemogram (12/03/2017 5:51 AM) WBC 22.37 (H) 4.50 - 11.00 k/uL [facility] DEPARTMENT OF PATHOLOGY AND GENOMIC MEDICINE RBC 4.41 4.20 - 5.50 m/uL [facility] DEPARTMENT OF PATHOLOGY AND GENOMIC MEDICINE HGB 13.1 12.0 - 16.0 g/dL [facility] DEPARTMENT OF PATHOLOGY AND GENOMIC MEDICINE HCT 40.3 37.0 - 47.0 % [facility] DEPARTMENT OF PATHOLOGY AND GENOMIC MEDICINE MCV 91.4 82.0 - 100.0 fL [facility] DEPARTMENT OF PATHOLOGY AND GENOMIC MEDICINE MCH 29.7 27.0 - 34.0 pg [facility] DEPARTMENT OF PATHOLOGY AND GENOMIC MEDICINE MCHC 32.5 31.0 - 37.0 g/dL [facility] DEPARTMENT OF PATHOLOGY AND GENOMIC MEDICINE RDW - SD 45.3 37.0 - 55.0 fL [facility] DEPARTMENT OF PATHOLOGY AND GENOMIC MEDICINE MPV 10.4 8.8 - 13.2 fL [facility] DEPARTMENT OF PATHOLOGY AND GENOMIC MEDICINE Platelet count 244 150 - 400 k/uL [facility] DEPARTMENT OF PATHOLOGY AND GENOMIC MEDICINE Nucleated RBC 0.00 /100 WBC [facility] DEPARTMENT OF PATHOLOGY AND GENOMIC MEDICINE Specimen Blood Performing Organization Address [facility] [place] [address] PATHOLOGY AND GENOMIC MEDICINE * Ionized calcium (12/03/2017 5:51 AM) pH 7.45 [facility] DEPARTMENT OF PATHOLOGY AND GENOMIC MEDICINE Ionized calcium 1.08 (L) 1.11 - 1.32 mmol/L [facility] DEPARTMENT OF PATHOLOGY AND GENOMIC MEDICINE Specimen Plasma specimen Performing Organization Address City/[facility] [place] [address] PATHOLOGY AND GENOMIC MEDICINE * POC glucose (12/02/2017 5:40 PM) Only the most recent of 7 results within the time period is included. POC glucose 135 (H) 65 - 99 mg/dL [facility] DEPARTMENT OF Comment: PATHOLOGY AND No Action Needed GENOMIC MEDICINE Meter ID: [id number] Home Appliance Technician: Negro Mishra Performing Organization Address City/State/Zipcode Phone Number [place] [address] [place] [phone] PATHOLOGY AND GENOMIC MEDICINE * ECG 12 lead (12/01/2017 6:01 PM) Ventricular rate 88 [facility] Atrial rate 88 [facility] VT interval 168 [facility] QRSD interval 90 [facility] QT interval 420 [facility] QTC interval 508 [facility] P axis 1 57 [facility] QRS axis 1 45 [facility] T wave axis 35 [facility] EKG impression Normal sinus rhythm-Possible [facility] Left atrial enlargement-RSR' or QR pattern in V1 suggests right ventricular conduction delay-Prolonged QT-Abnormal ECG-In automated comparison with ECG of 26-NOV-2017 12:40,-QT has lengthened- Performing Organization Address City/[facility] Phone Number [facility] [address] [place] [address] * Surgical pathology request (12/01/2017 9:32 AM) [facility] DEPARTMENT OF PATHOLOGY AND GENOMIC MEDICINE Surgical pathology report See link below for PDF Lab [facility] DEPARTMENT OF Report PATHOLOGY AND GENOMIC MEDICINE Result status This is Final Report for [facility] DEPARTMENT OF [id number] PATHOLOGY AND GENOMIC MEDICINE Performing Organization Address [facility] Phone Number [facility] DEPARTMENT OF [address] [place] [id number] PATHOLOGY AND GENOMIC MEDICINE * ECG Pre/Post Op (11/26/2017 12:40 PM) Ventricular rate 62 [facility] Atrial rate 62 [facility] VT interval 130 [facility] QRSD interval 86 [facility] QT interval 442 [facility] QTC interval 448 [facility] P axis 1 66 [facility] QRS axis 1 63 [facility] T wave axis 66 [facility] EKG impression Normal sinus rhythm-Possible [facility] Left atrial enlargement-RSR' or QR pattern in V1 suggests right ventricular conduction delay-Borderline ECG-No previous ECGs available- Performing Organization Address [facility]/Zipcode Phone Number [facility] MUSE [address] [place] [address] * Comprehensive metabolic panel (11/26/2017 12:21 PM) Sodium 143 135 - 148 mEq/L [facility] DEPARTMENT OF PATHOLOGY AND GENOMIC MEDICINE Potassium 4.7 3.5 - 5.0 mEq/L [facility] DEPARTMENT OF PATHOLOGY AND GENOMIC MEDICINE Chloride 103 98 - 112 mEq/L [facility] DEPARTMENT OF PATHOLOGY AND GENOMIC MEDICINE CO2 27 24 - 31 mEq/L [facility] DEPARTMENT OF PATHOLOGY AND GENOMIC MEDICINE Anion gap 13@ANIO 7 - 15 mEq/L [facility] DEPARTMENT OF PATHOLOGY AND GENOMIC MEDICINE BUN 17 8 - 23 mg/dL [facility] DEPARTMENT OF PATHOLOGY AND GENOMIC MEDICINE Creatinine 0.80 0.50 - 0.90 mg/dL [facility] DEPARTMENT OF PATHOLOGY AND GENOMIC MEDICINE Glucose 97 65 - 99 mg/dL [facility] DEPARTMENT OF PATHOLOGY AND GENOMIC MEDICINE Calcium 10.1 8.8 - 10.2 mg/dL [facility] DEPARTMENT OF PATHOLOGY AND GENOMIC MEDICINE Protein 8.1 6.3 - 8.3 g/dL [facility] DEPARTMENT OF Comment: PATHOLOGY AND [place] GENOMIC MEDICINE 4.6-7.0 g/dL 1 week 4.4-7.6 g/dL 7 months-1year 5.1-7.3 g/dL 1-2 years5.6-7 .5 g/dL >3 years6.0-8 .0 g/dL 18-150 6.3-8.3 g/dL Albumin 4.2 3.5 - 5.0 g/dL [facility] DEPARTMENT OF PATHOLOGY AND GENOMIC MEDICINE A/G ratio 1.1 0.7 - 3.8 [facility] DEPARTMENT OF PATHOLOGY AND GENOMIC MEDICINE Alkaline phosphatase 71 35 - 104 U/L [facility] DEPARTMENT OF PATHOLOGY AND GENOMIC MEDICINE AST 20 10 - 35 U/L [facility] DEPARTMENT OF PATHOLOGY AND GENOMIC MEDICINE ALT 26 5 - 50 U/L [facility] DEPARTMENT OF PATHOLOGY AND GENOMIC MEDICINE Total bilirubin 0.6 0.0 - 1.2 mg/dL [facility] DEPARTMENT OF PATHOLOGY AND GENOMIC MEDICINE Specimen Plasma specimen Performing Organization Address City/State/Zipcode Phone Number [facility] DEPARTMENT OF [address] [place] [address] PATHOLOGY AND GENOMIC MEDICINE after 12/08/2016 Insurance Payer Benefit Subscriber ID Type Phone Address Plan / Group MEDICARE MEDICARE xxxxxxxxxx Medicare [place], [place] PART A AND B AARP AARP xxxxxxxxxxx Commercial SUPPLEMENT Home: [id number] [facility] [place] [id number]
[2017-12-09] MEDS ORDERED: PANTOPRAZOLE 40 MG 10ML VIAL IV ONE (18:09)
[2017-12-09] MEDS ORDERED: SODIUM CHLORIDE 0.9% 1000ML 1,000 ML IV STA (18:09)
--- NOTE | 2017-12-09 18:21 | NUR ---
[facility] notified of need for stat arterial & venous doppler.
[2017-12-09] MEDS ORDERED: HEPARIN SOD (PORCINE) 5,000 UNIT/ML VIAL IV ONE (18:30)
--- NOTE | 2017-12-09 18:41 | Diagnostic Imaging Report ---
Examination: Single AP view of the chest. COMPARISON: Chest x-ray post procedure 10/15/2017, CT chest 09/08/2017 INDICATION: Right leg pain, left rib fracture IMPRESSION: 1. Lines and Tubes: None 2. Lungs are well-inflated. Small to moderate left-sided pleural effusion and likely associated atelectasis or consolidation. This may represent postoperative changes, given the metallic clips in the left hilum. No pneumothorax. Linear subsegmental atelectasis in the right lung. 3. Cardiomediastinal silhouette is normal. Pulmonary vasculature is normal. 4. No acute bony abnormalities. Signed by: Dr. Jarret Mills M.D. on 12/09/2017 6:38 PM
--- NOTE | 2017-12-09 19:05 | NUR ---
RECEIVED REPORT FROM ANIRUDH STUART DAY SHIFT NURSE.
[2017-12-09 19:34] LABS: BASOPHILS # (AUTO) 0.1 (0.0-0.1); BASOPHILS % 0.5 % (0.0-1.0); EOSINOPHILS # (AUTO) 0.1 (0.0-0.4); EOSINOPHILS % 0.4 % (0.0-6.0); HEMATOCRIT 38.8 % (34.2-44.1); HEMOGLOBIN 12.7 g/dL (12.0-16.0); LYMPHOCYTES # (AUTO) 2.4 (1.0-3.2); LYMPHOCYTES % 16.3 % (18.0-39.1); MEAN CORPUSCULAR HEMOGLOBIN 29.6 pg (28-32); MEAN CORPUSCULAR HGB CONC 32.7 g/dL (31-35); MEAN CORPUSCULAR VOLUME 90.4 fL (81-99); MONOCYTES % 6.9 % (4.4-11.3); NEUTROPHILS # (AUTO) 10.9 (2.1-6.9); NEUTROPHILS % 74.2 % (38.7-80.0); PLATELET COUNT 390 x10e3/uL (140-360); RED BLOOD COUNT 4.29 x10e6/uL (3.6-5.1); RED CELL DISTRIBUTION WIDTH 13.3 % (11.7-14.4)
[2017-12-09 19:38] LABS: INR 0.89; PROTHROMBIN TIME 12.9 seconds (11.9-14.5)
[2017-12-09 19:39] LABS: PARTIAL THROMBOPLASTIN TIME 29.1 seconds (23.8-35.5)
[2017-12-09 19:51] LABS: ALANINE AMINOTRANSFERASE 89 IU/L (0-55); ALBUMIN 3.8 g/dL (3.5-5.0); ALBUMIN/GLOBULIN RATIO 1.1 (0.8-2.0); ALKALINE PHOSPHATASE 77 IU/L (40-150); ANION GAP 15.8 mmol/L (8-16); BLOOD UREA NITROGEN 16 mg/dL (7-26); BUN/CREATININE RATIO 21 (6-25); CALCIUM 9.4 mg/dL (8.4-10.2); CARBON DIOXIDE 24 mmol/L (22-29); CHLORIDE 101 mmol/L (98-107); CREATINE KINASE 47 IU/L (29-168); CREATININE, SERUM 0.77 mg/dL (0.57-1.11); EST GLOMERULAR FILTRATION RATE > 60 ML/MIN (60-); GLUCOSE 104 mg/dL (74-118); MAGNESIUM 2.1 MG/DL (1.3-2.1); POTASSIUM 3.8 mmol/L (3.5-5.1); SODIUM 137 mmol/L (136-145)
--- OUTSIDE RECORDS SUMMARY | 2017-12-09 20:17 | XMS REPORT | Clinical Summary ---
Author Author [facility] Organization [facility] Address Unknown Phone Unavailable Care Team Providers Care Creative Art Director Name Role Phone Asked, No Pcp PCP [...] Date Type Specialty Care Team Description 12/01/2017 [facility] Elio Mabry MD Nodule of left lung - Encounter (Primary Dx); 12/07/2017 Mass in chest 12/01/2017 Procedure Pass Cardiothoracic Surgery 12/01/2017 Surgery Cardiothoracic Surgery Elio Mabry MD CERVICAL MEDIASTINOSCOPY 11/26/2017 Pre-Admit Pre-Admission Testing Elio Mabry MD Preop testing (Primary Testing Dx) Appointment 11/26/2017 Anesthesia Cardiothoracic Surgery Fracisco Michele CONTENT ANALYST Event after 12/08/2016 Social History Tobacco Use [...] INFLUENZA VACCINE 09/09/2017 Implants Implanted Type Area Supervisor Sewer Maintenance Device Expiration Model / Identifier Date Serial / Lot Clip Ligtng Davidck Hemoclip Plus W/ Medical N/A: N/A TELEFLEX [id number] / Tape Ti Lg - [id number] Clips for MEDICAL / Implanted: 12/01/2017 (Quantity not Internal on file) Use [place] Perph Vasclr Ptfe 1.2x10cm Vascular N/A: N/A BARD PERIPHERAL 08/06/2022 [id number] / 1.65mm - [id number] Graft VASCULAR / Implanted: 12/01/2017 (Quantity not [id number] on file) Procedures Procedure Name Priority Date/Time [...] procedure well with no immediate complicati ons AL AN ELECTIVE Routine 12/01/2017 ENDOTRACHEAL AIRWAY 8:55 [...] is included. Estimated GFR >=90 mL/min/1.73 m2 [facility] DEPARTMENT OF Comment: PATHOLOGY AND CatergoryUnitsInte GENOMIC MEDICINE rpretation G1 >=90 Normal or high G2 60-89Mildly decreased [id number] Mildly to moderately decreased [id number] Moderately to severely decreased G4 15-29Severely decreased G5 <15Kidney failure The eGFR was calculated using the Chronic Kidney Disease Epidemiology Collaboration (CKD-EPI) equation. Interpretation is based on recommendations of the National Kidney Foundation-Kidney Disease Outcomes Quality Initiative (NKF-KDOQI) published in 2014. Specimen Plasma specimen Performing Organization Address City/State/Zipcode Phone Number [facility] DEPARTMENT OF [address] [place] [address] PATHOLOGY AND GENOMIC MEDICINE * CBC with platelet and differential (12/07/2017 4:47 AM) Only the most recent of 2 results within the time period is included. WBC 12.86 (H) 4.50 - 11.00 k/uL [facility] DEPARTMENT OF PATHOLOGY AND GENOMIC MEDICINE RBC 4.18 (L) 4.20 - 5.50 m/uL [facility] DEPARTMENT OF PATHOLOGY AND GENOMIC MEDICINE HGB 12.3 12.0 - 16.0 g/dL [facility] DEPARTMENT OF PATHOLOGY AND GENOMIC MEDICINE HCT 38.1 37.0 - 47.0 % [facility] DEPARTMENT OF PATHOLOGY AND GENOMIC MEDICINE MCV 91.1 82.0 - 100.0 fL [facility] DEPARTMENT OF PATHOLOGY AND GENOMIC MEDICINE MCH 29.4 27.0 - 34.0 pg [facility] DEPARTMENT OF PATHOLOGY AND GENOMIC MEDICINE MCHC 32.3 31.0 - 37.0 g/dL [facility] DEPARTMENT OF PATHOLOGY AND GENOMIC MEDICINE RDW - SD 43.7 37.0 - 55.0 fL [facility] DEPARTMENT OF PATHOLOGY AND GENOMIC MEDICINE MPV 9.9 8.8 - 13.2 fL [facility] DEPARTMENT OF PATHOLOGY AND GENOMIC MEDICINE Platelet count 297 150 - 400 k/uL [facility] DEPARTMENT OF PATHOLOGY AND GENOMIC MEDICINE Nucleated RBC 0.00 /100 WBC [facility] DEPARTMENT OF PATHOLOGY AND GENOMIC MEDICINE Neutrophils 58.1 39.0 - 69.0 % [facility] DEPARTMENT OF PATHOLOGY AND GENOMIC MEDICINE Lymphocytes 29.1 25.0 - 45.0 % [facility] DEPARTMENT OF PATHOLOGY AND GENOMIC MEDICINE Monocytes 7.4 0.0 - 10.0 % [facility] DEPARTMENT OF PATHOLOGY AND GENOMIC MEDICINE Eosinophils 3.0 0.0 - 5.0 % [facility] DEPARTMENT OF PATHOLOGY AND GENOMIC MEDICINE Basophils 0.5 0.0 - 1.0 % [facility] DEPARTMENT OF PATHOLOGY AND GENOMIC MEDICINE Immature granulocytes 1.9 (H)Comment: "Immature 0.0 - 1.0 % [facility] DEPARTMENT OF granulocytes" (promyelocytes, PATHOLOGY AND myelocytes, metamyelocytes) GENOMIC MEDICINE Performing Organization Address City/[facility] [place] [address] PATHOLOGY AND GENOMIC MEDICINE * Phosphorus level (12/07/2017 4:47 AM) Only the most recent of 2 results within the time period is included. Phosphorus 3.1 2.4 - 4.5 mg/dL [facility] DEPARTMENT OF PATHOLOGY AND GENOMIC MEDICINE Specimen Plasma specimen Performing Organization Address City/[facility] [place] [address] PATHOLOGY AND [facility] * Magnesium level (12/07/2017 4:47 AM) Only the most recent of 2 results within the time period is included. Magnesium 1.9 1.6 - 2.4 mg/dL [facility] DEPARTMENT OF PATHOLOGY AND GENOMIC MEDICINE Specimen Plasma specimen Performing Organization Address [facility] [place] [address] PATHOLOGY AND GENOMIC MEDICINE * Basic metabolic panel (12/07/2017 4:47 AM) Only the most recent of 2 results within the time period is included. Sodium 135 135 - 148 mEq/L [facility] DEPARTMENT OF PATHOLOGY AND GENOMIC MEDICINE Potassium 4.1 3.5 - 5.0 mEq/L [facility] DEPARTMENT OF PATHOLOGY AND GENOMIC MEDICINE Chloride 97 (L) 98 - 112 mEq/L [facility] DEPARTMENT OF PATHOLOGY AND GENOMIC MEDICINE CO2 24 24 - 31 mEq/L [facility] DEPARTMENT OF PATHOLOGY AND GENOMIC MEDICINE Anion gap 14@ANIO 7 - 15 mEq/L [facility] DEPARTMENT OF PATHOLOGY AND GENOMIC MEDICINE BUN 12 8 - 23 mg/dL [facility] DEPARTMENT OF PATHOLOGY AND GENOMIC MEDICINE Creatinine 0.66 0.50 - 0.90 mg/dL [facility] DEPARTMENT OF PATHOLOGY AND GENOMIC MEDICINE Glucose 92 65 - 99 mg/dL [facility] DEPARTMENT OF PATHOLOGY AND GENOMIC MEDICINE Calcium 9.7 8.8 - 10.2 mg/dL [facility] DEPARTMENT OF PATHOLOGY AND GENOMIC MEDICINE Specimen Plasma specimen Performing Organization Address City/State/Zipcode Phone Number [facility] DEPARTMENT OF [address] [place] [address] PATHOLOGY AND GENOMIC MEDICINE * XR Chest [...] clear except for some linear basilar atelectasis. [facility]-[id number] Procedure Note Hm Interface, Radiology Results Incoming [...] clear except for some linear basilar atelectasis. [facility]-[id number] Performing Organization Address City/[facility]/[place] [address] * CBC hemogram (12/03/2017 5:51 AM) WBC 22.37 (H) 4.50 - 11.00 k/uL [facility] DEPARTMENT OF PATHOLOGY AND GENOMIC MEDICINE RBC 4.41 4.20 - 5.50 m/uL [facility] DEPARTMENT OF PATHOLOGY AND GENOMIC MEDICINE HGB 13.1 12.0 - 16.0 g/dL [facility] DEPARTMENT OF PATHOLOGY AND GENOMIC MEDICINE HCT 40.3 37.0 - 47.0 % [facility] DEPARTMENT OF PATHOLOGY AND GENOMIC MEDICINE MCV 91.4 82.0 - 100.0 fL [facility] DEPARTMENT OF PATHOLOGY AND GENOMIC MEDICINE MCH 29.7 27.0 - 34.0 pg [facility] DEPARTMENT OF PATHOLOGY AND GENOMIC MEDICINE MCHC 32.5 31.0 - 37.0 g/dL [facility] DEPARTMENT OF PATHOLOGY AND GENOMIC MEDICINE RDW - SD 45.3 37.0 - 55.0 fL [facility] DEPARTMENT OF PATHOLOGY AND GENOMIC MEDICINE MPV 10.4 8.8 - 13.2 fL [facility] DEPARTMENT OF PATHOLOGY AND GENOMIC MEDICINE Platelet count 244 150 - 400 k/uL [facility] DEPARTMENT OF PATHOLOGY AND GENOMIC MEDICINE Nucleated RBC 0.00 /100 WBC [facility] DEPARTMENT OF PATHOLOGY AND GENOMIC MEDICINE Specimen Blood Performing Organization Address [facility] [place] [address] PATHOLOGY AND GENOMIC MEDICINE * Ionized calcium (12/03/2017 5:51 AM) pH 7.45 [facility] DEPARTMENT OF PATHOLOGY AND GENOMIC MEDICINE Ionized calcium 1.08 (L) 1.11 - 1.32 mmol/L [facility] DEPARTMENT OF PATHOLOGY AND GENOMIC MEDICINE Specimen Plasma specimen Performing Organization Address City/[facility] [place] [place] [address] PATHOLOGY AND GENOMIC MEDICINE * POC glucose (12/02/2017 5:40 PM) Only the most recent of 7 results within the time period is included. POC glucose 135 (H) 65 - 99 mg/dL [facility] DEPARTMENT OF Comment: PATHOLOGY AND No Action Needed GENOMIC MEDICINE Meter ID: [id number] Seo Specialist: Negro Mishra Performing Organization Address City/State/Zipcode Phone Number [place] [address] [place] [phone] PATHOLOGY AND GENOMIC MEDICINE * ECG 12 lead (12/01/2017 6:01 PM) Ventricular rate 88 [facility]USE Atrial rate 88 [facility] AL interval 168 [facility] QRSD interval 90 [...] 26-NOV-2017 12:40,-QT has lengthened- Performing Organization Address City/[facility] Phone Number [facility] [address] [place] [address] * Surgical pathology request (12/01/2017 9:32 AM) [facility] DEPARTMENT OF PATHOLOGY AND GENOMIC MEDICINE Surgical pathology report See link below for PDF Lab [facility] DEPARTMENT OF Report PATHOLOGY AND GENOMIC MEDICINE Result status This is Final Report for [facility] DEPARTMENT OF [id number] PATHOLOGY AND GENOMIC MEDICINE Performing Organization Address [facility] Phone Number [facility] DEPARTMENT OF [address] [place] [id number] PATHOLOGY AND GENOMIC MEDICINE * ECG Pre/Post Op (11/26/2017 12:40 PM) Ventricular rate 62 [facility] MUSE Atrial rate 62 [facility] M[facility] AL interval 130 [facility] QRSD interval 86 [...] ECG-No previous ECGs available- Performing Organization Address [facility]/Zipcode Phone Number [facility] MUSE [address] [place] [address] * Comprehensive metabolic panel (11/26/2017 12:21 PM) Sodium 143 135 - 148 mEq/L [facility] DEPARTMENT OF PATHOLOGY AND GENOMIC MEDICINE Potassium 4.7 3.5 - 5.0 mEq/L [facility] DEPARTMENT OF PATHOLOGY AND GENOMIC MEDICINE Chloride 103 98 - 112 mEq/L [facility] DEPARTMENT OF PATHOLOGY AND GENOMIC MEDICINE CO2 27 24 - 31 mEq/L [facility] DEPARTMENT OF PATHOLOGY AND GENOMIC MEDICINE Anion gap 13@ANIO 7 - 15 mEq/L [facility] DEPARTMENT OF PATHOLOGY AND GENOMIC MEDICINE BUN 17 8 - 23 mg/dL [facility] DEPARTMENT OF PATHOLOGY AND GENOMIC MEDICINE Creatinine 0.80 0.50 - 0.90 mg/dL [facility] DEPARTMENT OF PATHOLOGY AND GENOMIC MEDICINE Glucose 97 65 - 99 mg/dL [facility] DEPARTMENT OF PATHOLOGY AND GENOMIC MEDICINE Calcium 10.1 8.8 - 10.2 mg/dL [facility] DEPARTMENT OF PATHOLOGY AND GENOMIC MEDICINE Protein 8.1 6.3 - 8.3 g/dL [facility] DEPARTMENT OF Comment: PATHOLOGY AND [place] GENOMIC MEDICINE 4.6-7.0 g/dL 1 week 4.4-7.6 g/dL 7 months-1year 5.1-7.3 g/dL 1-2 years5.6-7 .5 g/dL >3 years6.0-8 .0 g/dL 18-150 6.3-8.3 g/dL Albumin 4.2 3.5 - 5.0 g/dL [facility] DEPARTMENT OF PATHOLOGY AND GENOMIC MEDICINE A/G ratio 1.1 0.7 - 3.8 [facility] DEPARTMENT OF PATHOLOGY AND GENOMIC MEDICINE Alkaline phosphatase 71 35 - 104 U/L [facility] DEPARTMENT OF PATHOLOGY AND GENOMIC MEDICINE AST 20 10 - 35 U/L [facility] DEPARTMENT OF PATHOLOGY AND GENOMIC MEDICINE ALT 26 5 - 50 U/L [facility] DEPARTMENT OF PATHOLOGY AND GENOMIC MEDICINE Total bilirubin 0.6 0.0 - 1.2 mg/dL [facility] DEPARTMENT OF PATHOLOGY AND GENOMIC MEDICINE Specimen Plasma specimen Performing Organization Address City/State/Zipcode Phone Number [facility] DEPARTMENT OF [address] [place] [address] PATHOLOGY AND GENOMIC MEDICINE after 12/08/2016 Insurance Payer Benefit Subscriber ID Type Phone Address Plan / Group MEDICARE MEDICARE xxxxxxxxxx [place] PART A AND B AARP AARP xxxxxxxxxxx Commercial SUPPLEMENT Home: [address] [place] [id number]
[2017-12-09] MEDS ORDERED: FENTANYL CITRATE/PF 100MCG/2 ML INJ ONE (20:30)
[2017-12-09] MEDS ORDERED: HEPARIN SOD (PORCINE) 1000 UNIT/ML 30ML ONE (20:30)
[2017-12-09] MEDS ORDERED: MIDAZOLAM HCL 2 MG/2 ML VIAL ONE (20:30)
[2017-12-09] MEDS ORDERED: ALTEPLASE RECOMBINANT 2 MG/2 ML VIAL ONE ×2 (20:30→21:57)
[2017-12-09] MEDS ORDERED: SODIUM CHLORIDE 0.9% 100 ML 100 ML ONE (20:31)
[2017-12-09] MEDS ORDERED: SODIUM CHLORIDE 0.9% 1000ML 1,000 ML ONE (20:31)
[2017-12-09] MEDS ORDERED: IOPAMIDOL 300MG/ML 100 ML INFUS..BTL IV ONE (20:31)
[2017-12-09] MEDS ORDERED: HEPARIN SOD/SOD CHLORIDE 2,000 ML ONE (20:31)
[2017-12-09] MEDS ORDERED: NITROGLYCERIN/D5W 200 MCG/ML 0 ML ONE (20:31)
[2017-12-09] MEDS ORDERED: LIDOCAINE HCL 1% LOCAL INJ 20 ML VIAL ONE ×2 (20:31→20:32)
[2017-12-09] MEDS ORDERED: ALTEPLASE RECOMBINANT 2 MG/2 ML VIAL IV ONE (20:33)
[2017-12-09] MEDS ORDERED: SODIUM CHLORIDE 0.9% INJ 10 ML VIAL ONE (21:05)
[2017-12-09] MEDS ORDERED: HEPARIN 25,000U/0.45% NS 250ML 250 ML IV ONE (21:14)
[2017-12-09] MEDS ORDERED: SODIUM CHLORIDE 0.9% INJ 100 ML BAG ONE (21:57)
[2017-12-09] MEDS: SODIUM CHLORIDE 0.9% 1000ML 1,000 ML IV SCH (22:30)
--- NOTE | 2017-12-09 22:30 | NUR ---
Received patient from asset availability leader. hemodynamically stable alert and oriented on both heparin and TPA drip. Also on normal saline at 75mls /hr. Settled comfortable in bed. Educated on maintaining a flat position and immobilizing the left lower limb. Verbalized understanding
--- OUTSIDE RECORDS SUMMARY | 2017-12-09 22:39 | XMS REPORT | Clinical Summary ---
Author Author [facility] Organization [facility] Address Unknown Phone Unavailable Care Team Providers Care Inside Sales Executive Name Role Phone Asked, No Pcp PCP [...] Date Type Specialty Care Team Description 12/01/2017 [facility] Cardiology Elio Mabry MD Nodule of left lung - Encounter (Primary Dx); 12/07/2017 Mass in chest 12/01/2017 Procedure Pass Cardiothoracic Surgery 12/01/2017 Surgery Cardiothoracic Surgery Elio Mabry MD CERVICAL MEDIASTINOSCOPY 11/26/2017 Pre-Admit Pre-Admission Testing Elio Mabry MD Preop testing (Primary Testing Dx) Appointment 11/26/2017 Anesthesia Cardiothoracic Surgery Fracisco Michele DENTAL APPLIANCE REPAIRER Event after 12/08/2016 Social History Tobacco Use [...] INFLUENZA VACCINE 09/09/2017 Implants Implanted Type Area Rock Breaker Device Expiration Model / Identifier Date Serial / Lot Clip Ligtng Davidck Hemoclip Plus W/ Medical N/A: N/A TELEFLEX [id number] / Tape Ti Lg - [id number] Clips for MEDICAL / Implanted: 12/01/2017 (Quantity not Internal on file) Use [place] Perph Vasclr Ptfe 1.2x10cm Vascular N/A: N/A BARD PERIPHERAL 08/06/2022 [id number] / 1.65mm - [id number] Graft VASCULAR / Implanted: 12/01/2017 (Quantity not [id number] on file) Procedures Procedure Name Priority Date/Time [...] procedure well with no immediate complicati ons UT AN ELECTIVE Routine 12/01/2017 ENDOTRACHEAL AIRWAY 8:55 [...] is included. Estimated GFR >=90 mL/min/1.[address] [facility] DEPARTMENT OF Comment: PATHOLOGY AND CatergoryUnitsInte GENOMIC MEDICINE rpretation G1 >=90 Normal or high G2 60-89Mildly decreased P4v94-29 Mildly to moderately decreased E1h46-51 Moderately to severely decreased G4 15-29Severely decreased G5 <15Kidney failure The eGFR was calculated using the Chronic Kidney Disease Epidemiology Collaboration (CKD-EPI) equation. Interpretation is based on recommendations of the National Kidney Foundation-Kidney Disease Outcomes Quality Initiative (NKF-KDOQI) published in 2014. Specimen Plasma specimen Performing Organization Address City/State/Zipcode Phone Number [facility] DEPARTMENT OF [address] [place] [address] PATHOLOGY AND GENOMIC MEDICINE * CBC with platelet and differential (12/07/2017 4:47 AM) Only the most recent of 2 results within the time period is included. WBC 12.86 (H) 4.50 - 11.00 k/uL [facility] DEPARTMENT OF PATHOLOGY AND GENOMIC MEDICINE RBC 4.18 (L) 4.20 - 5.50 m/uL [facility] DEPARTMENT OF PATHOLOGY AND GENOMIC MEDICINE HGB 12.3 12.0 - 16.0 g/dL [facility] DEPARTMENT OF PATHOLOGY AND GENOMIC MEDICINE HCT 38.1 37.0 - 47.0 % [facility] DEPARTMENT OF PATHOLOGY AND GENOMIC MEDICINE MCV 91.1 82.0 - 100.[address] [facility] DEPARTMENT OF PATHOLOGY AND GENOMIC MEDICINE MCH 29.4 27.0 - 34.[address] [facility] DEPARTMENT OF PATHOLOGY AND GENOMIC MEDICINE MCHC 32.3 31.0 - 37.0 g/dL [facility] DEPARTMENT OF PATHOLOGY AND GENOMIC MEDICINE RDW - SD 43.7 37.0 - 55.[address] [facility] DEPARTMENT OF PATHOLOGY AND GENOMIC MEDICINE MPV 9.9 8.8 - 13.[address] [facility] DEPARTMENT OF PATHOLOGY AND GENOMIC MEDICINE Platelet count 297 150 - 400 k/uL [facility] DEPARTMENT OF PATHOLOGY AND GENOMIC MEDICINE Nucleated RBC 0.00 /[address] [facility] DEPARTMENT OF PATHOLOGY AND GENOMIC MEDICINE Neutrophils 58.1 39.0 - 69.0 % [facility] DEPARTMENT OF PATHOLOGY AND GENOMIC MEDICINE Lymphocytes 29.1 25.0 - 45.0 % [facility] DEPARTMENT OF PATHOLOGY AND GENOMIC MEDICINE Monocytes 7.4 0.0 - 10.0 % [facility] DEPARTMENT OF PATHOLOGY AND GENOMIC MEDICINE Eosinophils 3.0 0.0 - 5.0 % [facility] DEPARTMENT OF PATHOLOGY AND GENOMIC MEDICINE Basophils 0.5 0.0 - 1.0 % [facility] DEPARTMENT OF PATHOLOGY AND GENOMIC MEDICINE Immature granulocytes 1.9 (H)Comment: "Immature 0.0 - 1.0 % [facility] DEPARTMENT OF granulocytes" (promyelocytes, PATHOLOGY AND myelocytes, metamyelocytes) GENOMIC MEDICINE Performing Organization Address City/[facility] [place] [address] PATHOLOGY AND GENOMIC MEDICINE * Phosphorus level (12/07/2017 4:47 AM) Only the most recent of 2 results within the time period is included. Phosphorus 3.1 2.4 - 4.5 mg/dL [facility] DEPARTMENT OF PATHOLOGY AND GENOMIC MEDICINE Specimen Plasma specimen Performing Organization Address City/[facility] [address] PATHOLOGY AND [facility] * Magnesium level (12/07/2017 4:47 AM) Only the most recent of 2 results within the time period is included. Magnesium 1.9 1.6 - 2.4 mg/dL [facility] DEPARTMENT OF PATHOLOGY AND GENOMIC MEDICINE Specimen Plasma specimen Performing Organization Address [facility] [address] PATHOLOGY AND GENOMIC MEDICINE * Basic metabolic panel (12/07/2017 4:47 AM) Only the most recent of 2 results within the time period is included. Sodium 135 135 - 148 mEq/L [facility] DEPARTMENT OF PATHOLOGY AND GENOMIC MEDICINE Potassium 4.1 3.5 - 5.0 mEq/L [facility] DEPARTMENT OF PATHOLOGY AND GENOMIC MEDICINE Chloride 97 (L) 98 - 112 mEq/L [facility] DEPARTMENT OF PATHOLOGY AND GENOMIC MEDICINE CO2 24 24 - 31 mEq/L [facility] DEPARTMENT OF PATHOLOGY AND GENOMIC MEDICINE Anion gap 14@ANIO 7 - 15 mEq/L [facility] DEPARTMENT OF PATHOLOGY AND GENOMIC MEDICINE BUN 12 8 - 23 mg/dL [facility] DEPARTMENT OF PATHOLOGY AND GENOMIC MEDICINE Creatinine 0.66 0.50 - 0.90 mg/dL [facility] DEPARTMENT OF PATHOLOGY AND GENOMIC MEDICINE Glucose 92 65 - 99 mg/dL [facility] DEPARTMENT OF PATHOLOGY AND GENOMIC MEDICINE Calcium 9.7 8.8 - 10.2 mg/dL [facility] DEPARTMENT OF PATHOLOGY AND GENOMIC MEDICINE Specimen Plasma specimen Performing Organization Address City/State/Zipcode Phone Number [facility] DEPARTMENT OF [address] [place] [address] PATHOLOGY AND GENOMIC MEDICINE * XR Chest [...] clear except for some linear basilar atelectasis. [facility]-[id number] Procedure Note Hm Interface, Radiology Results Incoming [...] clear except for some linear basilar atelectasis. [facility]-[id number] Performing Organization Address City/[facility]/[place] [address] * CBC hemogram (12/03/2017 5:51 AM) WBC 22.37 (H) 4.50 - 11.00 k/uL [facility] DEPARTMENT OF PATHOLOGY AND GENOMIC MEDICINE RBC 4.41 4.20 - 5.50 m/uL [facility] DEPARTMENT OF PATHOLOGY AND GENOMIC MEDICINE HGB 13.1 12.0 - 16.0 g/dL [facility] DEPARTMENT OF PATHOLOGY AND GENOMIC MEDICINE HCT 40.3 37.0 - 47.0 % [facility] DEPARTMENT OF PATHOLOGY AND GENOMIC MEDICINE MCV 91.4 82.0 - 100.[address] [facility] DEPARTMENT OF PATHOLOGY AND GENOMIC MEDICINE MCH 29.7 27.0 - 34.[address] [facility] DEPARTMENT OF PATHOLOGY AND GENOMIC MEDICINE MCHC 32.5 31.0 - 37.0 g/dL [facility] DEPARTMENT OF PATHOLOGY AND GENOMIC MEDICINE RDW - SD 45.3 37.0 - 55.[address] [facility] DEPARTMENT OF PATHOLOGY AND GENOMIC MEDICINE MPV 10.4 8.8 - 13.[address] [facility] DEPARTMENT OF PATHOLOGY AND GENOMIC MEDICINE Platelet count 244 150 - 400 k/uL [facility] DEPARTMENT OF PATHOLOGY AND GENOMIC MEDICINE Nucleated RBC 0.00 /[address] [facility] DEPARTMENT OF PATHOLOGY AND GENOMIC MEDICINE Specimen Blood Performing Organization Address [facility] [place] [address] PATHOLOGY AND GENOMIC MEDICINE * Ionized calcium (12/03/2017 5:51 AM) pH 7.[address] [facility] DEPARTMENT OF PATHOLOGY AND GENOMIC MEDICINE Ionized calcium 1.08 (L) 1.11 - 1.32 mmol/L [facility] DEPARTMENT OF PATHOLOGY AND GENOMIC MEDICINE Specimen Plasma specimen Performing Organization Address City/[facility] [address] PATHOLOGY AND GENOMIC MEDICINE * POC glucose (12/02/2017 5:40 PM) Only the most recent of 7 results within the time period is included. POC glucose 135 (H) 65 - 99 mg/dL [facility] DEPARTMENT OF Comment: PATHOLOGY AND No Action Needed GENOMIC MEDICINE Meter ID: [id number] Advanced Practice Nurse Psychotherapist: Negro Mishra Performing Organization Address City/State/Zipcode Phone Number [place] [address] [place] [phone] PATHOLOGY AND GENOMIC MEDICINE * ECG 12 lead (12/01/2017 6:01 PM) Ventricular rate 88 [facility]USE Atrial rate 88 [facility] UT interval 168 [facility] QRSD interval 90 [...] 26-NOV-2017 12:40,-QT has lengthened- Performing Organization Address City/[facility] Phone Number [facility] [address] [place] [address] * Surgical pathology request (12/01/2017 9:32 AM) [facility] DEPARTMENT OF PATHOLOGY AND GENOMIC MEDICINE Surgical pathology report See link below for PDF Lab [facility] DEPARTMENT OF Report PATHOLOGY AND GENOMIC MEDICINE Result status This is Final Report for [facility] DEPARTMENT OF [id number] PATHOLOGY AND GENOMIC MEDICINE Performing Organization Address [facility] Phone Number [facility] DEPARTMENT OF [address] [place] [id number] PATHOLOGY AND GENOMIC MEDICINE * ECG Pre/Post Op (11/26/2017 12:40 PM) Ventricular rate 62 [facility] MUSE Atrial rate 62 [facility] UT interval 130 [facility] QRSD interval 86 [...] ECG-No previous ECGs available- Performing Organization Address [facility]/Zipcode Phone Number [facility] MUSE [address] [place] [address] * Comprehensive metabolic panel (11/26/2017 12:21 PM) Sodium 143 135 - 148 mEq/L [facility] DEPARTMENT OF PATHOLOGY AND GENOMIC MEDICINE Potassium 4.7 3.5 - 5.0 mEq/L [facility] DEPARTMENT OF PATHOLOGY AND GENOMIC MEDICINE Chloride 103 98 - 112 mEq/L [facility] DEPARTMENT OF PATHOLOGY AND GENOMIC MEDICINE CO2 27 24 - 31 mEq/L [facility] DEPARTMENT OF PATHOLOGY AND GENOMIC MEDICINE Anion gap 13@ANIO 7 - 15 mEq/L [facility] DEPARTMENT OF PATHOLOGY AND GENOMIC MEDICINE BUN 17 8 - 23 mg/dL [facility] DEPARTMENT OF PATHOLOGY AND GENOMIC MEDICINE Creatinine 0.80 0.50 - 0.90 mg/dL [facility] DEPARTMENT OF PATHOLOGY AND GENOMIC MEDICINE Glucose 97 65 - 99 mg/dL [facility] DEPARTMENT OF PATHOLOGY AND GENOMIC MEDICINE Calcium 10.1 8.8 - 10.2 mg/dL [facility] DEPARTMENT OF PATHOLOGY AND GENOMIC MEDICINE Protein 8.1 6.3 - 8.3 g/dL [facility] DEPARTMENT OF Comment: PATHOLOGY AND Ray GENOMIC MEDICINE 4.6-7.0 g/dL 1 week 4.4-7.6 g/dL 7 months-1year 5.1-7.3 g/dL 1-2 years5.6-7 .5 g/dL >3 years6.0-8 .0 g/dL 18-150 6.3-8.3 g/dL Albumin 4.2 3.5 - 5.0 g/dL [facility] DEPARTMENT OF PATHOLOGY AND GENOMIC MEDICINE A/G ratio 1.1 0.7 - 3.[address] [facility] DEPARTMENT OF PATHOLOGY AND GENOMIC MEDICINE Alkaline phosphatase 71 35 - 104 U/L [facility] DEPARTMENT OF PATHOLOGY AND GENOMIC MEDICINE AST 20 10 - 35 U/L [facility] DEPARTMENT OF PATHOLOGY AND GENOMIC MEDICINE ALT 26 5 - 50 U/L [facility] DEPARTMENT OF PATHOLOGY AND GENOMIC MEDICINE Total bilirubin 0.6 0.0 - 1.2 mg/dL [facility] DEPARTMENT OF PATHOLOGY AND GENOMIC MEDICINE Specimen Plasma specimen Performing Organization Address City/State/Zipcode Phone Number [facility] DEPARTMENT OF [address] [place] [address] PATHOLOGY AND GENOMIC MEDICINE after 12/08/2016 Insurance Payer Benefit Subscriber ID Type Phone Address Plan / Group MEDICARE MEDICARE xxxxxxxxxx Medicare [place], [place] PART A AND B AARP AARP xxxxxxxxxxx Commercial SUPPLEMENT Home: [address] [place] [address]
--- NOTE | 2017-12-09 22:40 | History and Physical ---
CHIEF COMPLAINT: Pain in the right leg. HISTORY OF PRESENT ILLNESS: Ms. Whitehead is a 67-year-old female with a history of lung cancer, status post lobectomy approximately a month ago, who has sudden onset of pain for the last 24 hours in the right leg. Arterial Doppler indicates complete occlusion of the femoral and popliteal arteries. PAST MEDICAL HISTORY: As listed above. SOCIAL HISTORY: Patient does not smoke or drink. REVIEW OF SYSTEMS: Negative except as dictated in the history of present illness. PHYSICAL EXAMINATION: VITAL SIGNS: Afebrile, heart rate 79, blood pressure is 159/72, O2 sat is 97%. CARDIOVASCULAR: Regular rhythm. No murmurs or gallops. LUNGS: Clear to auscultation bilaterally. ABDOMEN: Soft. Bowel sounds heard adequately. EXTREMITIES: Right leg pulses are absent. Right leg is cold. LABS: Reviewed. ASSESSMENT: Critical limb ischemia. RECOMMENDATIONS: Acute thrombosis of the right femoral artery was noted. Thrombectomy with thrombolysis is indicated. The risks, benefits, and alternatives of the procedure were discussed with the patient and family. They are agreeable for the same. Job#: [id number]
[2017-12-09] MEDS ORDERED: HEPARIN 25,000U/0.45% NS 250ML 250 ML IV SCH (23:15)
[2017-12-09] MEDS ORDERED: ALTEPLASE RECOMBINANT IV PRN (23:30)
[2017-12-09] MEDS ORDERED: SODIUM CHLORIDE 0.9% IV PRN (23:30)
--- NOTE | 2017-12-09 23:30 | NUR ---
Given an order for a Mckenzie catheter insertion, size 16 Mckenzie inserted successfully urine sample collected
--- NOTE | 2017-12-09 23:36 | Operative Report ---
DATE OF PROCEDURE: December 09, 2017 INDICATIONS: Critical limb ischemia and gangrene. PROCEDURES PERFORMED: 1. Abdominal aortogram. 2. Third-order catheter placement from the left femoral artery to the right superficial femoral artery. 3. Primary thrombectomy of the right femoral artery. 4. Initiation of transcatheter lysis. COMPLICATIONS: None. RECOMMENDATIONS: Reassessment of reperfusion in the next 24 to 48 hours. PROCEDURE DETAILS: Access obtained to the left femoral artery. A 6-Djiboutian sheath was placed. Abdominal aortogram demonstrated widely patent abdominal aorta and iliac arteries bilaterally. The femoral artery could not be visualized. The catheter was then advanced from the left femoral artery to the right superficial femoral artery. Complete occlusion of the femoral artery was noted. Infrapopliteal vessels were not well visualized. Intervention of the right femoral artery was contemplated. The sheath was exchanged to a 45-cm sheath. Patient received 7000 units of intra-arterial heparin. The lesion was crossed using a glidewire which was then exchanged to a perfusion catheter. Transcatheter lysis was initiated along with manual aspiration thrombectomy. The patient was transferred to the ICU in stable condition for reassessment of perfusion in the next 24 to 48 hours. Job#: [id number]
[2017-12-10] VITALS (71 sets, daily range): BP systolic 92–166; BP diastolic 45–101
--- NOTE | 2017-12-10 | NUR ---
Patient complained of pain from a previous surgery on her upper back at a scale of 7, morphine administered as prescribed, reassessed after 30 minutes, verbalized improvement to a 3
[2017-12-10] MEDS: MORPHINE SULFATE INJ 4 MG/ML INJ IV PRN ×3 (00:30→21:43)
--- NOTE | 2017-12-10 02:38 | NUR ---
Patient calmly asleep no complaints raised, hemodynamically stable iv sites patent and intact
[2017-12-10 03:34] LABS: CLARITY,URINE CLEAR (CLEAR); COLOR,URINE YELLOW (YELLOW); LEUKOCYTE ESTERASE ,URINE NEGATIVE (NEGATIVE); NITRITE,URINE NEGATIVE (NEGATIVE)
[2017-12-10 03:35] LABS: BILIRUBIN,URINE NEGATIVE (NEGATIVE); KETONES,URINE NEGATIVE (NEGATIVE); PROTEIN,URINE DIPSTICK NEGATIVE (NEGATIVE); URINE UROBILINOGEN 0.2 mg/dL (0.2 - 1)
[2017-12-10 03:42] LABS: BACTERIA,URINE RARE /HPF; EPITHELIAL CELLS,URINE RARE /LPF; WBC,URINE (MAN) 0-5 /HPF (0-5)
--- NOTE | 2017-12-10 04:00 | NUR ---
PTT results received high, for a repeat PTT to confirm the results, sample collected. heparin infusion stopped for 60 min per protocol
--- NOTE | 2017-12-10 05:11 | NUR ---
Heparin infusion restarted as per protocol at 700 units/hr, 200 units lower, previously running at 900 units/hr
[2017-12-10 05:22] LABS: BASOPHILS # (AUTO) 0.1 (0.0-0.1); BASOPHILS % 0.4 % (0.0-1.0); EOSINOPHILS # (AUTO) 0.2 (0.0-0.4); EOSINOPHILS % 1.3 % (0.0-6.0); HEMATOCRIT 33.4 % (34.2-44.1); LYMPHOCYTES # (AUTO) 3.4 (1.0-3.2); LYMPHOCYTES % 23.6 % (18.0-39.1); MEAN CORPUSCULAR HGB CONC 32.9 g/dL (31-35); MONOCYTES # (AUTO) 1.2 (0.2-0.8); MONOCYTES % 8.4 % (4.4-11.3); NEUTROPHILS # (AUTO) 9.2 (2.1-6.9); NEUTROPHILS % 64.7 % (38.7-80.0); PLATELET COUNT 298 x10e3/uL (140-360); RED BLOOD COUNT 3.67 x10e6/uL (3.6-5.1); RED CELL DISTRIBUTION WIDTH 13.4 % (11.7-14.4)
[2017-12-10 06:30] LABS: ALANINE AMINOTRANSFERASE 62 IU/L (0-55); ALBUMIN 2.9 g/dL (3.5-5.0); ALBUMIN/GLOBULIN RATIO 1.1 (0.8-2.0); ALKALINE PHOSPHATASE 61 IU/L (40-150); BLOOD UREA NITROGEN 12 mg/dL (7-26); BUN/CREATININE RATIO 19 (6-25); CALCIUM 8.2 mg/dL (8.4-10.2); CARBON DIOXIDE 21 mmol/L (22-29); CHLORIDE 108 mmol/L (98-107); CHOLESTEROL 164 MD/DL (0-199); CREATININE, SERUM 0.64 mg/dL (0.57-1.11); EST GLOMERULAR FILTRATION RATE > 60 ML/MIN (60-); GLUCOSE 104 mg/dL (74-118); HDL CHOLESTEROL 33 MG/DL (40-60); LDL CHOLESTEROL 101 MG/DL (60-130); SODIUM 138 mmol/L (136-145); TRIGLYCERIDES 150 MG/DL (0-149)
--- NOTE | 2017-12-10 07:03 | NUR ---
Handed over hemodynamically stable
--- NOTE | 2017-12-10 08:00 | NUR ---
+ pulses to bilateral lower extremities via doppler. lle pedal +2, rle pedal +1 faint. bilateral L.E.'s temperature warm with <3seconds for capillary refill. patient denies pain to either lower extremity. plan to return to catheterization laboratory technician to reevaluate blood flow to rle.
[2017-12-10] MEDS ORDERED: MIDAZOLAM HCL 2 MG/2 ML VIAL ONE (10:04)
[2017-12-10] MEDS ORDERED: HEPARIN SOD (PORCINE) 1000 UNIT/ML 30ML ONE (10:04)
[2017-12-10] MEDS ORDERED: NITROGLYCERIN/D5W 200 MCG/ML 250 ML ONE (10:05)
[2017-12-10] MEDS ORDERED: IOPAMIDOL 300MG/ML 100 ML INFUS..BTL IV ONE ×2 (10:05→11:13)
[2017-12-10] MEDS ORDERED: LIDOCAINE HCL 2% LOCAL 20 ML VIAL ONE (10:05)
[2017-12-10] MEDS ORDERED: SODIUM CHLORIDE 0.9% 1000ML 1,000 ML ONE ×2 (10:05→10:54)
[2017-12-10] MEDS ORDERED: FENTANYL CITRATE/PF 100MCG/2 ML INJ ONE ×2 (10:05→10:10)
[2017-12-10] MEDS ORDERED: HEPARIN SOD/SOD CHLORIDE 2,000 ML ONE (10:06)
--- NOTE | 2017-12-10 10:17 | History and Physical ---
PRIMARY CARE PHYSICIAN: Dr. Guzman SURGEON: Dr. Lopez at [facility]. CHIEF COMPLAINT: Right leg numbness and tingling. HISTORY OF PRESENT ILLNESS: This is a 67-year-old woman who was found to have a lung nodule, underwent left-sided lobectomy at [facility] by John on Thursday. Patient returned home. When she attempted to walk, she felt burning of the right hip, which radiated down her right leg. Fifty minutes later, the right foot started tingling and became completely numb, she was unable to walk, called primary care doctor, and recommended to come to the hospital for management. Here, she was found to have critical limb ischemia, underwent procedure with Dr. Gage where she underwent abdominal aortogram. There was catheter placement at left femoral artery to the right superficial femoral artery, and primary thrombectomy of the right femoral artery, and initiation of transcatheter lysis. Patient now in the ICU and resting comfortably, now awaiting second procedure. Denies any chest pain or shortness of breath. PAST MEDICAL HISTORY: Gastritis, sinusitis, osteoporosis, lung nodule status post left-sided lobectomy 3 days ago. PAST SURGICAL HISTORY: Hysterectomy, appendectomy, right eye cataract surgery. ALLERGIES: PER ELECTRONIC MEDICAL RECORD. FAMILY/SOCIAL HISTORY: No alcohol, illicits, or cigarettes. MEDICATIONS: Per electronic medical record. REVIEW OF SYSTEMS: Denies any dizziness, chest pain, shortness of breath. Denies any fever, chills, sweats, nausea, vomiting, diarrhea, headache, back pain. PHYSICAL EXAMINATION: VITAL SIGNS: Reviewed. GENERAL APPEARANCE: Tired-appearing woman resting in bed. HEENT: Anicteric. CARDIOVASCULAR: Normal S1 and S2. LUNGS: Moderate breath sounds. She has left back scar from lobectomy. ABDOMEN: Soft, nontender, nondistended. EXTREMITIES: She has no edema or calf tenderness. She has left groin with catheter in place. Bilateral feet are warm. Right foot is warm. There are no signs of cyanosis. Pulses are thready to 1+. SKIN: Dry. PSYCHIATRIC: Flat affect. NEUROLOGICAL: Alert and oriented x3. Moving all extremities. LABS: Reviewed. MEDICATIONS: Reviewed. ASSESSMENT: A 67-year-old woman. 1. Right leg critical limb ischemia, status post thrombectomy of the femoral artery and initiation of catheter lysis. 2. Left lung nodule, status post lobectomy 3 days ago. 3. Overweight state. Body mass index is 26.4. 4. Acute transaminitis. 5. Normocytic anemia. 6. Small to moderate left-sided pleural effusion. PLAN: 1. Continue heparin drip. Planned for second procedure by cardiology today. 2. Add PPI while patient is on heparin. 3. Continue pain control with morphine. 4. Follow up blood counts. 5. No pneumothorax on chest x-ray. She has small pleural effusion on left. 6. Continue to monitor closely in the ICU. Critical care time more than 35 minutes. I have discussed case with patient and her [id number] at bedside. Job#: [id number]
[2017-12-10] MEDS ORDERED: ASPIRIN 325 MG TAB ONE (11:53)
[2017-12-10] MEDS: SODIUM CHLORIDE 0.9% 1000ML 1,000 ML IV SCH (12:35)
--- NOTE | 2017-12-10 12:49 | NUR ---
returned from slab lifting engineer per bed on monitor; connected to room monitor. pt is awake and alert; left groin site s oozing, bruising, or hematoma. pedal pulses are palpable and feet are of equal warmth. pt is aware she is to lay flat until 1430. denies discomfort.
--- NOTE | 2017-12-10 13:23 | NUR ---
patient back to icu room post label fuser tender sheath removed from left groin. site dressing clean dry and intact. no s/s hematoma noted. instructed patient need to remain supine till 1430. pt verbalized understanding. granddaughter at bedside with patient. vss. hr 70, bp 143/84
[2017-12-10] MEDS: PANTOPRAZOLE 40 MG 10ML VIAL IV SCH (14:09)
--- NOTE | 2017-12-10 14:09 | NUR ---
protonix ivp given now as patient to labor relations manager for procedure. did not administer prior to procedure. updated .
[2017-12-10 14:52] LABS: CREATINE KINASE MB 0.9 ng/mL (0-5.0)
[2017-12-10] MEDS: ONDANSETRON HCL INJ 2 MG/ML VIAL IV PRN ×2 (15:47→21:43)
--- NOTE | 2017-12-10 15:50 | NUR ---
patient supine in bed all morning due to sheath in left groin and per MD order. instructed patient that she can turn side to side without bending at groin. patient verbalized understanding. patient now off bedrest and is independently repositioning herself.
[2017-12-10] MEDS ORDERED: RIVAROXABAN 20 MG TABLET PO SCH (17:00)
--- NOTE | 2017-12-10 18:25 | NUR ---
patient ambulated in ICU 2 laps. tolerated ambulation well. no assist device needed to ambulate. denies sob during ambulation. currently back in chair.
[2017-12-10] MEDS ORDERED: HYDRALAZINE HCL 20 MG/ML VIAL IV PRN (19:30)
--- NOTE | 2017-12-10 20:46 | Progress Note ---
DATE: December 10, 2017 CARDIOLOGY PROGRESS NOTE SUBJECTIVE: Patient had thrombectomy catheter placement last night due to acute right lower extremity limb ischemia. Overnight, the pain has improved significantly and pulses are now dopplerable. OBJECTIVE VITAL SIGNS: Please see medical record. GENERAL: Elderly white female, no acute distress. Well-developed, well-nourished. CARDIOVASCULAR: Regular rate and rhythm. No murmurs, rubs or gallops. Palpable radial pulses. Palpable femoral pulses bilaterally. Distal pulses are palpable on the left; not palpable, but dopplerable on the right. LUNGS: Clear to auscultation bilaterally. ABDOMEN: Thin, soft and nontender. No masses. NEURO AND PSYCH: Alert and oriented to person, place, and time. Normal affect. CARDIOVASCULAR MEDICATIONS: Reviewed. LABORATORY DATA: Reviewed. TELEMETRY DATA: Reviewed. Shows normal sinus rhythm. ASSESSMENT 1. Acute limb ischemia of the right lower extremity. 2. History of lung nodules status post lobectomy. 3. Hypertension. 4. Hyperlipidemia. PLAN: We will plan to take her back to the culture media laboratory assistant today to remove thrombolysis catheter as well as to perform secondary and primary thrombectomy of any residual clots and treat any underlying lesions as required. Patient will need to be on anticoagulation mcc. Will also get an echo to look for any intracardiac source of emboli as well as monitor her on telemetry. Thank you for this consult. Will continue to follow. Job#: [id number] Disability Care Givers
[2017-12-10] MEDS: ATORVASTATIN 20 MG TAB PO SCH (21:43)
--- NOTE | 2017-12-10 23:08 | NUR ---
CALLED DR KIMBLE SPOKE TO HIS NET FRONT END DEVELOPER. INFORMED HER OF PATIENT RUNNING LOW GRADE TEMP OF 100.8 PATIENT HAD NO ORDERS FOR TYLENOL. NEW ORDER TYLENOL 650MG PO Q6H PRN
[2017-12-10] MEDS ORDERED: ACETAMINOPHEN 325 MG TAB PO PRN (23:15)
[2017-12-11] VITALS (70 sets, daily range): BP systolic 64–119; BP diastolic 37–81
--- NOTE | 2017-12-11 00:58 | NUR ---
CALLED LEFT [facility] FOR DR BEACH TO RETURN MY PHONE CALL REGARDING THIS PATIENTs DROP IN BP WITH LOW GRADE TEMP
[2017-12-11] MEDS ORDERED: SODIUM CHLORIDE 0.9% 1000ML 1,000 ML IV STA (01:02)
--- NOTE | 2017-12-11 01:03 | NUR ---
DR BEACH RETURNED THE CALL. INFORMED HIM THAT PATIENT BP HAS BEEN LOW AND GAVE HIM THE LAST FEW VS THAT ARE BEING TAKEN Q15M AND THAT PATIENT HAS STARTED RUNNING LOW GRADE TEMP AND WAS MEDICATED WITH TYLENOL FOR FEVER. NEW ORDER TO GIVE BOLUS OF 1L NS X1 STAT
[2017-12-11] MEDS ORDERED: SODIUM CHLORIDE 0.9% 1000ML 1,000 ML ONE (01:12)
[2017-12-11] MEDS ORDERED: MIDODRINE 2.5 MG TAB PO ONE (04:00)
--- NOTE | 2017-12-11 04:00 | NUR ---
DR ARGUETA ROUNDED ON PATIENT. UPDATED ON PATIENT STATUS THOUGH OUT THIS SHIFT AND WHAT WAS ORDERED AND GIVEN. NEW ORDERS RECEIVED FOR ZITHROMAX 500MG IV Q24, VANCOMYCIN 1GM IV X1, MIDODRINE 5MG PO TID GIVE FIRST DOSE NOW, UA CULTURE{BUT ALREADY IN PROCESS} BLOOD CULTURES X2, NORMAL SALINE BOLUS OF 500ML NOW X1. ALL ORDERS READ BACK AND CONFIRMED
--- NOTE | 2017-12-11 04:11 | NUR ---
Progress Note- IM O/N: low BP; catheters removed from groin; Feels warm; Some cough ROS: no cp/sob/f/c/s/N/V/D/BURDICK/Vision changes REVIEW OF SYSTEMS: Denies any dizziness, chest pain, shortness of breath. Denies any fever, chills, sweats, nausea, vomiting, diarrhea, headache, back pain. PHYSICAL EXAMINATION: VITAL SIGNS: Reviewed. GENERAL APPEARANCE: Tired-appearing woman resting in bed. HEENT: Anicteric. CARDIOVASCULAR: Normal S1 and S2. LUNGS: Moderate breath sounds. She has left back scar from lobectomy. ABDOMEN: Soft, nontender, nondistended. EXTREMITIES: She has no edema or calf tenderness. left groin catheters removed. Bilateral feet are warm. Right foot is warm. There are no signs of cyanosis. Pulses are thready to 1+. SKIN: Dry. PSYCHIATRIC: Flat affect. NEUROLOGICAL: Alert and oriented x3. Moving all extremities. LABS: Reviewed. MEDICATIONS: Reviewed. ASSESSMENT: A 67-year-old woman. 1. Right leg critical limb ischemia, status post thrombectomy of the femoral artery and initiation of catheter lysis. 2. Left lung nodule, status post lobectomy 3 days ago. 3. Overweight state. Body mass index is 26.4. 4. Acute transaminitis. 5. Normocytic anemia. 6. Small to moderate left-sided pleural effusion. PLAN: 1. Continue heparin drip. Planned for second procedure by cardiology today. 2. Add PPI while patient is on heparin. 3. Continue pain control with morphine. 4. Follow up blood counts. 5. No pneumothorax on chest x-ray. She has small pleural effusion on left. 6. Continue to monitor closely in the ICU. Critical care time more than 35 minutes. I have discussed case with patient and her [id number] at bedside. 12/11/17 Hypotensive, leukocytosis, fever- Sepsis, rec'd 1 liter bolus, give 500ml more, start midodrine, check blood and urine cx, check cxr, start azithromycin and cefepime, give 1 dose vancomycin. f/u labs cct>35mins.
[2017-12-11] MEDS ORDERED: SODIUM CHLORIDE 0.9% 1000ML 1,000 ML IV ONE (04:15)
[2017-12-11] MEDS ORDERED: VANCOMYCIN HCL 1 GM in SODIUM CHLORIDE 0.9% 250ML 250 ML IV ONE (04:15)
[2017-12-11] MEDS ORDERED: CEFEPIME HCL 1 GM VIAL IV SCH ×2 (04:15→09:45)
[2017-12-11] MEDS: AZITHROMYCIN 500MG/NS 250 ML 250 ML IV SCH ×2 (04:23→05:40)
[2017-12-11] MEDS ORDERED: VANCOMYCIN 1GM/NS 250 ML 250 ML ONE (04:30)
[2017-12-11 04:47] LABS: BASOPHILS # (AUTO) 0.1 (0.0-0.1); BASOPHILS % 0.3 % (0.0-1.0); EOSINOPHILS # (AUTO) 0.1 (0.0-0.4); EOSINOPHILS % 0.4 % (0.0-6.0); HEMATOCRIT 26.5 % (34.2-44.1); HEMOGLOBIN 8.8 g/dL (12.0-16.0); LYMPHOCYTES # (AUTO) 2.8 (1.0-3.2); LYMPHOCYTES % 18.7 % (18.0-39.1); MEAN CORPUSCULAR HGB CONC 33.2 g/dL (31-35); MEAN CORPUSCULAR VOLUME 90.4 fL (81-99); MONOCYTES % 6.7 % (4.4-11.3); NEUTROPHILS # (AUTO) 10.9 (2.1-6.9); NEUTROPHILS % 71.8 % (38.7-80.0); PLATELET COUNT 273 x10e3/uL (140-360); RED BLOOD COUNT 2.93 x10e6/uL (3.6-5.1); RED CELL DISTRIBUTION WIDTH 13.4 % (11.7-14.4)
[2017-12-11 05:03] LABS: ANION GAP 8.8 mmol/L (8-16); BLOOD UREA NITROGEN 12 mg/dL (7-26); BUN/CREATININE RATIO 18 (6-25); CALCIUM 7.9 mg/dL (8.4-10.2); CARBON DIOXIDE 22 mmol/L (22-29); CHLORIDE 112 mmol/L (98-107); CREATININE, SERUM 0.65 mg/dL (0.57-1.11); EST GLOMERULAR FILTRATION RATE > 60 ML/MIN (60-); GLUCOSE 109 mg/dL (74-118); POTASSIUM 3.8 mmol/L (3.5-5.1); SODIUM 139 mmol/L (136-145)
--- NOTE | 2017-12-11 05:45 | Diagnostic Imaging Report ---
EXAM: CHEST SINGLE (PORTABLE), AP 1 view INDICATION: Fever, cough COMPARISON: AP view of the chest October 15, 2017 and December 09, 2017 FINDINGS: LINES/TUBES: None LUNGS: Volume loss of the left lung. Surgical clips left hilum. Atelectasis right lung base. PLEURA: Slight increase in left pleural effusion. HEART AND MEDIASTINUM: The heart is within normal size limits. Nonspecific widening of the upper mediastinum. BONES AND SOFT TISSUES: No acute findings. IMPRESSION: Slight increase in left pleural effusion. Fluid has an unusual appearance. Consider CT of the chest with IV contrast to evaluate for possible empyema or hydropneumothorax depending on patient's clinical symptoms and surgical history. Signed by: Dr. Juanita Vilchis M.D. on 12/11/2017 5:42 AM
[2017-12-11] MEDS ORDERED: CALCIUM GLUCONATE 10% INJ 9.3 MEQ in SODIUM CHLORIDE 0.9% 100 ML 100 ML IV ONE (07:30)
[2017-12-11] MEDS ORDERED: CITRATE OF MAGNESIA 300ML BOTTLE PO NR (07:45)
[2017-12-11] MEDS: PANTOPRAZOLE 40 MG 10ML VIAL IV SCH (09:02)
[2017-12-11] MEDS: MIDODRINE 2.5 MG TAB PO SCH ×3 (09:02→16:40)
[2017-12-11] MEDS: ASPIRIN 81 MG CHEW TAB PO SCH (09:02)
--- NOTE | 2017-12-11 10:05 | Consultation ---
DATE OF CONSULTATION: December 11, 2017 PULMONARY/CRITICAL CARE CONSULTATION ATTENDING PHYSICIAN: Dr. Guzman HISTORY OF PRESENT ILLNESS: The patient is a 67-year-old woman. 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 The margins were clean and the lymph nodes were negative. The patient remained in the hospital for 7 days and was then discharged home. The patient came into the hospital one day after discharge with right leg pain. She was found to have ischemia of the right leg. She had a thrombectomy and thrombolysis by Dr. Gage. She tolerated the procedure well, and the catheter was removed yesterday. PAST SURGICAL HISTORY 1. Recent left upper lobe lobectomy as noted above. 2. Recent thrombectomy as noted above. PAST MEDICAL HISTORY 1. 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 2. Peripheral vascular disease. ALLERGIES: THE PATIENT IS ALLERGIC TO CODEINE. REVIEW OF SYSTEMS: The patient is afebrile. The patient does not complain of headache. There is some postoperative pain in the left thoracic area. The patient has no chest pain. She has no difficulty breathing. She does not have any abdominal pain. There is no nausea or vomiting. Her right leg feels better since the procedure. She has no focal neurological abnormalities. PHYSICAL EXAMINATION VITALS: The patient is afebrile. The vital signs are stable. HEENT: Shows no facial swelling or erythema. Nasal mucosa is normal. The oropharynx is normal. LYMPHATIC: Shows no submandibular, cervical or supraclavicular adenopathy. CARDIAC: Reveals a regular rate and rhythm with a normal S1 and S2. LUNGS: Auscultation of the lungs reveals decreased breath sounds on the left side. ABDOMEN: Soft and nontender. There is no rebound or guarding. EXTREMITIES: Shows some improved pulses in the right leg. IMPRESSION 1. Recent lobectomy for bronchogenic carcinoma. 2. Thrombectomy for right femoral artery occlusion. PLAN 1. Patient will need a followup CT in 6 months to assure no recurrence of the malignancy. 2. Patient has already arranged for followup with oncology at [facility]. 3. Continue care for peripheral vascular disease as recommended by cardiology. 4. Pain control. Job#: [id number] RI
[2017-12-11] MEDS: SODIUM CHLORIDE 0.9% 1000ML 1,000 ML IV SCH ×2 (10:30→16:31)
--- NOTE | 2017-12-11 12:18 | Diagnostic Imaging Report ---
Examination: Single AP view of the chest. COMPARISON: Multiple prior studies. INDICATION: Line placement DISCUSSION: Lines/tubes: Right PICC line with tip overlying the superior vena cava. Lungs: Left lower lung atelectasis. Left lung volume loss. Pleura: Left effusion. Heart and mediastinum: The heart and the mediastinum are unremarkable. Post surgical change to the left hilar region. Bones and soft tissues: No acute bony abnormalities. IMPRESSION: 1. Right PICC line with tip overlying the superior vena cava. Signed by: Dr. Sascha Funez M.D. on 12/11/2017 12:15 PM
--- NOTE | 2017-12-11 13:19 | Progress Note ---
DATE: December 11, 2017 CARDIOVASCULAR PROGRESS NOTE: SUBJECTIVE: Patient is a little hypotensive today. No focal complaints. Denies any chest pain, shortness of breath or lower extremity pain. OBJECTIVE: VITAL SIGNS: Temperature afebrile, pulse 74, respiratory rate 18, blood pressure 88/37, satting 98% on room air. GENERAL: White female, frail, no acute distress. Well developed, well nourished. CARDIOVASCULAR: Regular rate and rhythm. No murmurs, rubs or gallops. Palpable radial pulses. Palpable femoral pulses bilaterally. No evidence of hematoma at left groin catheter site. LUNGS: Clear to auscultation bilaterally except for left lower base with decreased breath sounds. ABDOMEN: Thin, soft, nontender. No masses. NEURO AND PSYCH: Alert and oriented to person, place, and time. Normal affect. CARDIOVASCULAR MEDICATIONS: Reviewed. LABORATORY DATA: Reviewed. Significant for a hemoglobin drop from 11 yesterday to 8.8 today. TELEMETRY DATA: Reviewed. Shows normal sinus rhythm. IMAGING DATA: Reviewed. Shows a chest x-ray with left lower lobe effusion that is worse than it was on admission. ASSESSMENT AND PLAN: 1. Acute limb ischemia right lower extremity, status post tissue plasminogen activator administration and thrombolysis and thrombectomy of right lower extremity and stenting of the right tibioperoneal artery. 2. History of lung nodule, status post left lower lobectomy. 3. Hypertension. 4. Hyperlipidemia. 5. Suspected bleeding. PLAN: The hemoglobin drop and the hypotension are concerning for ongoing bleeding given that patient received tPA and significant anticoagulation for her right lower extremity thrombus yesterday. Chest x-ray shows worsening left lower lobe effusion. This is the site of her recent surgery; so, this is a possible culprit. The left groin access site without any significant evidence of hematoma. Clinically there is no evidence of peritoneal hematoma either. Patient is awaiting CT scan of chest to evaluate her left lower lobe effusion. Given that she is a Jew and cannot accept blood transfusion or blood products, will hold off on Xarelto at this time. Only continue aspirin for her right lower extremity stents that were placed yesterday. Continue fluid resuscitation. Recommend placing a PICC line in case she needs vasoactive agents or further access for fluid resuscitation. Thank you for this consult. Will continue to follow closely. Job#: [id number] EV
--- NOTE | 2017-12-11 15:28 | Diagnostic Imaging Report ---
EXAMINATION: CT scan of the chest without contrast. TECHNIQUE: helical CT images of the chest were performed from the lung apices to the level of the adrenal glands. No intravenous contrast was administered Coronal and sagittal reformatted images were obtained.Dose modulation, iterative reconstruction, and/or weight based adjustment of the mA/kV was utilized to reduce the radiation dose to as low as reasonably achievable. COMPARISON: None. CLINICAL HISTORY:Lobectomy, and left pleural effusion DISCUSSION: ABSENCE OF INTRAVENOUS CONTRAST DECREASES SENSITIVITY FOR DETECTION OF FOCAL LESIONS AND VASCULAR PATHOLOGY. LINES/TUBES: Right PICC line with tip in the superior vena cava. LUNGS AND AIRWAYS: Left upper lobectomy with postsurgical change in the left hilum. Chronic appearing atelectasis within the anterior portion of the left lung. 3 mm calcified granuloma right upper lobe anteriorly. Right lower lung atelectasis. PLEURA: Loculated pleural fluid and air collection anteriorly and a smaller one posteriorly. Left greater than right pleural effusion. HEART AND MEDIASTINUM: The thyroid gland is normal. The heart and pericardium are unremarkable. Soft tissue density at the left hilar region. LYMPH NODES: There is no mediastinal, hilar or axillary lymphadenopathy. ABDOMEN: Limited contrast-enhanced views of the upper abdomen show no abnormality within the visualized liver, spleen, pancreas, or kidneys. The adrenal glands are normal. BONES AND SOFT TISSUES: No acute bony abnormalities. IMPRESSION: Left upper lobectomy with atelectasis anteriorly and small loculated hydropneumothorax anteriorly (likely postsurgical with no clinical significance) Left hilar soft tissue prominence indeterminate if postsurgical change. CT of the chest with contrast may be of benefit. Left greater than right pleural effusion. Signed by: Dr. Sascha Funez M.D. on 12/11/2017 3:24 PM
[2017-12-11 18:29] LABS: BASOPHILS # (AUTO) 0.1 (0.0-0.1); BASOPHILS % 0.3 % (0.0-1.0); EOSINOPHILS # (AUTO) 0.1 (0.0-0.4); EOSINOPHILS % 0.3 % (0.0-6.0); HEMATOCRIT 26.6 % (34.2-44.1); HEMOGLOBIN 8.7 g/dL (12.0-16.0); LYMPHOCYTES # (AUTO) 3.2 (1.0-3.2); LYMPHOCYTES % 13.7 % (18.0-39.1); MEAN CORPUSCULAR HEMOGLOBIN 29.7 pg (28-32); MEAN CORPUSCULAR HGB CONC 32.7 g/dL (31-35); MEAN CORPUSCULAR VOLUME 90.8 fL (81-99); MONOCYTES % 4.5 % (4.4-11.3); NEUTROPHILS # (AUTO) 18.1 (2.1-6.9); NEUTROPHILS % 78.5 % (38.7-80.0); PLATELET COUNT 340 x10e3/uL (140-360); RED BLOOD COUNT 2.93 x10e6/uL (3.6-5.1); RED CELL DISTRIBUTION WIDTH 13.6 % (11.7-14.4)
[2017-12-11] MEDS: ATORVASTATIN 20 MG TAB PO SCH (20:32)
[2017-12-11] MEDS: ONDANSETRON HCL INJ 2 MG/ML VIAL IV PRN (20:33)
[2017-12-11] MEDS: MORPHINE SULFATE INJ 4 MG/ML INJ IV PRN (20:33)
[2017-12-11 21:14] LABS: HYPOCHROMASIA MODERATE; LYMPHOCYTES % (MANUAL) 7 % (19-48); MONOCYTES % (MANUAL) 7 % (3.4-9.0); NEUTROPHILS % (MANUAL) 85 % (40-74); PLATELET ESTIMATE ADEQUATE; PLATELET MORPHOLOGY COMMENT FEW LARGE; RBC MORPHOLOGY COMMENT NORMAL
[2017-12-12] VITALS (28 sets, daily range): BP systolic 78–123; BP diastolic 46–85
[2017-12-12] MEDS: SODIUM CHLORIDE 0.9% 1000ML 1,000 ML IV SCH ×4 (00:50→21:49)
[2017-12-12] MEDS ORDERED: HEPARIN SOD (PORCINE) 5,000 UNIT/ML VIAL IV ONE (01:00)
[2017-12-12] MEDS: ONDANSETRON HCL INJ 2 MG/ML VIAL IV PRN (03:10)
[2017-12-12] MEDS: AZITHROMYCIN 500MG/NS 250 ML 250 ML IV SCH (03:10)
[2017-12-12] MEDS: MORPHINE SULFATE INJ 4 MG/ML INJ IV PRN (03:10)
[2017-12-12] MEDS: CEFEPIME HCL 1 GM VIAL IV SCH (03:51)
[2017-12-12 04:30] LABS: BASOPHILS % 0.2 % (0.0-1.0); EOSINOPHILS # (AUTO) 0.2 (0.0-0.4); EOSINOPHILS % 1.1 % (0.0-6.0); HEMATOCRIT 25.7 % (34.2-44.1); HEMOGLOBIN 8.4 g/dL (12.0-16.0); LYMPHOCYTES # (AUTO) 3.1 (1.0-3.2); LYMPHOCYTES % 17.8 % (18.0-39.1); MEAN CORPUSCULAR HEMOGLOBIN 29.4 pg (28-32); MEAN CORPUSCULAR HGB CONC 32.7 g/dL (31-35); MEAN CORPUSCULAR VOLUME 89.9 fL (81-99); MONOCYTES # (AUTO) 0.9 (0.2-0.8); MONOCYTES % 5.2 % (4.4-11.3); NEUTROPHILS # (AUTO) 12.8 (2.1-6.9); NEUTROPHILS % 73.8 % (38.7-80.0); PLATELET COUNT 284 x10e3/uL (140-360); RED BLOOD COUNT 2.86 x10e6/uL (3.6-5.1); RED CELL DISTRIBUTION WIDTH 13.5 % (11.7-14.4)
[2017-12-12 04:50] LABS: ANION GAP 13.2 mmol/L (8-16); BLOOD UREA NITROGEN 9 mg/dL (7-26); BUN/CREATININE RATIO 14 (6-25); CALCIUM 7.9 mg/dL (8.4-10.2); CARBON DIOXIDE 22 mmol/L (22-29); CHLORIDE 110 mmol/L (98-107); CREATININE, SERUM 0.66 mg/dL (0.57-1.11); EST GLOMERULAR FILTRATION RATE > 60 ML/MIN (60-); GLUCOSE 143 mg/dL (74-118); MAGNESIUM 1.9 MG/DL (1.3-2.1); POTASSIUM 3.2 mmol/L (3.5-5.1); SODIUM 142 mmol/L (136-145)
[2017-12-12 05:12] LABS: FERRITIN 358.14 ng/mL (4.63-204.00)
[2017-12-12 05:29] LABS: FOLATE 15.6 ng/mL (7.0-15.4)
[2017-12-12] MEDS ORDERED: POTASSIUM CHLORIDE 20 MEQ TAB CR PO STA (05:54)
[2017-12-12] MEDS ORDERED: CALCIUM GLUCONATE 10% INJ 9.3 MEQ in SODIUM CHLORIDE 0.9% 100 ML 100 ML IV ONE (06:00)
--- NOTE | 2017-12-12 07:15 | NUR ---
Patient received asleep and has female visitor in recliner chair. V/S are stable. Respirations are even and unlabored. Awakened for assessment and she is alert and Ox4. Denies any pain or discomfort. Dorsalis pedal pulses are 2+ bilaterally and lower extremites are pink, and warm with brisk blanching to toe nailbeds.
[2017-12-12] MEDS: FERROUS SULFATE 325 MG TAB PO SCH ×2 (08:48→16:52)
[2017-12-12] MEDS: POLYETHYLENE GLYCOL 3350 17 GM PACK PO SCH ×2 (08:48→09:07)
[2017-12-12] MEDS: MIDODRINE 2.5 MG TAB PO SCH ×3 (08:48→16:00)
[2017-12-12] MEDS: PANTOPRAZOLE 40 MG 10ML VIAL IV SCH (09:07)
[2017-12-12] MEDS: ASPIRIN 81 MG CHEW TAB PO SCH (09:07)
[2017-12-12] MEDS: ASCORBIC ACID 500 MG TAB PO SCH ×2 (09:08→16:52)
--- NOTE | 2017-12-12 09:45 | NUR ---
Patient assisted to bathroom and states that she had a good bowel movement, even though she was very constipated and stool was very hard.
[2017-12-12] MEDS ORDERED: TRAMADOL HCL 50 MG TAB PO PRN (10:30)
--- NOTE | 2017-12-12 10:30 | NUR ---
Physical therapy here to ambulate patient with walker down the stokes and patient tolerated well. She is now sitting in chair with female visitor at bedside.
[2017-12-12] MEDS: CLOPIDOGREL BISULFATE 75 MG TAB PO SCH (11:00)
[2017-12-12] MEDS: LORATADINE 10 MG TAB PO SCH (11:00)
--- NOTE | 2017-12-12 11:31 | NUR ---
Mckenzie catheter D/C'd and tolerated well
--- NOTE | 2017-12-12 11:39 | NUR ---
Hematology consult called to DR. Morel
--- NOTE | 2017-12-12 11:50 | Progress Note ---
DATE: December 12, 2017 CARDIOLOGY PROGRESS NOTE SUBJECTIVE: Patient is without many complaints this morning. She does report a runny nose and also some shortness of breath. OBJECTIVE VITAL SIGNS: Temperature 98.6, pulse 75, respiratory rate 18, blood pressure 104/64, oxygen saturation 97% on room air. CARDIOVASCULAR MEDICATIONS 1. Aspirin 81 mg p.o. daily. 2. Atorvastatin 40 p.o. nightly. 3. Hydralazine IV q.4 hours p.r.n. 4. Midodrine 5 mg p.o. t.i.d. LABS: WBC 17.33, hemoglobin 8.4, hematocrit 25.7, platelets 284, sodium 142, potassium 3.2, BUN 9, creatinine 0.66, glucose 143, calcium 7.9, magnesium 1.9. TELEMETRY: Sinus rhythm. PHYSICAL EXAM GENERAL: Alert and oriented x3, resting comfortably in bed, does not appear to be in any acute distress. NECK: Supple. No JVD noted. CARDIOVASCULAR: Regular rate and rhythm. Normal S1 and S2. LUNGS: Diminished breath sounds, posterior lower lobes, left lower lobe. Otherwise clear to auscultation. No wheezing, crackles, or rhonchi noted. ABDOMEN: Soft, nontender. LOWER EXTREMITIES: 2+ nonpitting edema. Diminished pedal pulses. ASSESSMENT 1. Acute limb ischemia, right lower extremity, status post tissue plasminogen activator administration and thrombolysis and thrombectomy of the right lower extremity, stenting of the right tibioperoneal artery. 2. History of lung nodules, status post left lower lobe lobectomy. 3. Hypertension. 4. Hyperlipidemia. 5. Suspected bleeding. 6. Anemia. RECOMMENDATIONS: Re-initiate Xarelto and also aspirin and Plavix, triple therapy for now. Consult hematology for close monitoring. Okay to transfer out of ICU. CT of the lungs negative for pulmonary emboli, pleural effusions noted. Monitor hemoglobin and hematocrit very closely. This patient is a [employer] and cannot accept blood transfusion or blood products. We will monitor hemoglobin and hematocrit very closely for these reasons. Monitor left groin access for any evidence of bleeding. Continue midodrine for hypotension. We will continue to follow this patient very closely. Dictated by: Leonie Melo NP Job#: [id number] LPA
--- NOTE | 2017-12-12 13:00 | NUR ---
Patient assisted to bathroom and voided yellow urine in commode and tolerated well. Assisted back to bed.
--- NOTE | 2017-12-12 14:00 | NUR ---
Report called to ANIRUDH Smith and patient is going to Room 211.
--- NOTE | 2017-12-12 14:15 | NUR ---
RCD PT FROM ICU BY BED PT IS ALERT AND ORIENTED VITALS CHECKED PT RESTING ON BED BED LOW AND LOCKED CALL LIGHT IN REACH
--- NOTE | 2017-12-12 14:15 | NUR ---
PT CAME FROM ICU THEY DIDN'T ACKNOWLEDGE THE NEW ORDERS NOTIFIED THE CHARGE NURSE
--- NOTE | 2017-12-12 15:22 | NUR ---
Amaury Chen) called and notified of patient's room change to room 211.
[2017-12-12] MEDS: DOCUSATE SODIUM 100 MG CAP PO SCH (16:52)
[2017-12-12] MEDS: RIVAROXABAN 20 MG TABLET PO SCH (16:52)
--- NOTE | 2017-12-12 19:06 | NUR ---
PT RESTING ON BED BED SIDE REPORT GIVEN TO ONCOMING NURSE
--- NOTE | 2017-12-12 20:00 | NUR ---
Received patient from the day nurse , patient is alert and oriented, patient denies any pain or concerns at this time. safety and fall precautions maintained as per hospital protocol: bed in lowest position and locked, needed items beside bed, call choudhary placed close to patient and patient instructed to use it to call nurses for any assistance needed, patient verbalized understanding.
[2017-12-12] MEDS: ATORVASTATIN 20 MG TAB PO SCH (21:49)
[2017-12-13] VITALS (8 sets, daily range): BP systolic 110–136; BP diastolic 56–69
[2017-12-13] MEDS: SODIUM CHLORIDE 0.9% 1000ML 1,000 ML IV SCH (02:45)
[2017-12-13] MEDS ORDERED: SODIUM CHLORIDE 0.9% 250ML 250 ML ONE (04:01)
[2017-12-13] MEDS: AZITHROMYCIN 500MG/NS 250 ML 250 ML IV SCH (04:01)
[2017-12-13] MEDS: CEFEPIME HCL 1 GM VIAL IV SCH (04:01)
[2017-12-13 04:33] LABS: BASOPHILS # (AUTO) 0.1 (0.0-0.1); BASOPHILS % 0.4 % (0.0-1.0); EOSINOPHILS # (AUTO) 0.3 (0.0-0.4); EOSINOPHILS % 1.7 % (0.0-6.0); HEMATOCRIT 24.9 % (34.2-44.1); HEMOGLOBIN 8.2 g/dL (12.0-16.0); LYMPHOCYTES # (AUTO) 3.4 (1.0-3.2); MEAN CORPUSCULAR HGB CONC 32.9 g/dL (31-35); MEAN CORPUSCULAR VOLUME 91.2 fL (81-99); MONOCYTES # (AUTO) 0.8 (0.2-0.8); MONOCYTES % 4.5 % (4.4-11.3); NEUTROPHILS % 71.6 % (38.7-80.0); PLATELET COUNT 304 x10e3/uL (140-360); RED BLOOD COUNT 2.73 x10e6/uL (3.6-5.1); RED CELL DISTRIBUTION WIDTH 13.9 % (11.7-14.4)
[2017-12-13 04:46] LABS: ANION GAP 10.5 mmol/L (8-16); BLOOD UREA NITROGEN 7 mg/dL (7-26); BUN/CREATININE RATIO 11 (6-25); CALCIUM 8.4 mg/dL (8.4-10.2); CARBON DIOXIDE 21 mmol/L (22-29); CHLORIDE 112 mmol/L (98-107); CREATININE, SERUM 0.63 mg/dL (0.57-1.11); EST GLOMERULAR FILTRATION RATE > 60 ML/MIN (60-); GLUCOSE 101 mg/dL (74-118); MAGNESIUM 1.8 MG/DL (1.3-2.1); POTASSIUM 3.5 mmol/L (3.5-5.1); SODIUM 140 mmol/L (136-145)
--- NOTE | 2017-12-13 05:32 | NUR ---
patient endorsed to charge nurse.
--- NOTE | 2017-12-13 05:54 | NUR ---
RECEIVED REPORT FROM 7PM NURSE, WILL CONTINUE TO MONITOR PATIENT.
--- NOTE | 2017-12-13 07:04 | NUR ---
Received patient mid fowlers position, side rails upx2, call light within reach. AAOX4 to time, person, place, situation. Respirations even and unlabored. Instructed patient to use call light for assistance. Will continue to monitor.
--- NOTE | 2017-12-13 07:50 | Diagnostic Imaging Report ---
EXAMINATION: CHEST SINGLE (PORTABLE) INDICATION: Pleural effusion. ^Pleural Effusion ^[id number] ^[id number] COMPARISON: Chest CT 12/11/2017, chest radiograph 12/11/2017 FINDINGS: AP view Right lung apex extends out of the field of view. TUBES and LINES: Right upper extremity PICC tip overlies the lower SVC. LUNGS: Lungs are well inflated. Lungs are clear. There is no evidence of pneumonia or pulmonary edema. PLEURA: Stable small left pleural effusion. HEART AND MEDIASTINUM: Stable left hilar prominence corresponding to soft tissue prominence on CT. BONES AND SOFT TISSUES: Thoracotomy left upper rib defect. Soft tissues are unremarkable. UPPER ABDOMEN: No free air under the diaphragm. IMPRESSION: Stable small left pleural effusion. Persistent left hilar prominence for which chest CT with contrast may be of benefit in further characterizing. Signed by: DR. Chase Cruz MD on 12/13/2017 7:47 AM
[2017-12-13] MEDS: DOCUSATE SODIUM 100 MG CAP PO SCH ×2 (08:38→16:59)
[2017-12-13] MEDS: SENNOSIDES 8.6 MG TAB PO SCH (08:38)
[2017-12-13] MEDS: ASCORBIC ACID 500 MG TAB PO SCH ×2 (08:38→16:59)
[2017-12-13] MEDS: ASPIRIN 81 MG CHEW TAB PO SCH (08:38)
[2017-12-13] MEDS: PANTOPRAZOLE 40 MG 10ML VIAL IV SCH (08:38)
[2017-12-13] MEDS: POLYETHYLENE GLYCOL 3350 17 GM PACK PO SCH (08:38)
[2017-12-13] MEDS: FERROUS SULFATE 325 MG TAB PO SCH ×2 (08:38→16:59)
[2017-12-13] MEDS: CLOPIDOGREL BISULFATE 75 MG TAB PO SCH (08:38)
[2017-12-13] MEDS: LORATADINE 10 MG TAB PO SCH (08:38)
[2017-12-13] MEDS: MIDODRINE 2.5 MG TAB PO SCH ×3 (08:38→16:59)
--- NOTE | 2017-12-13 12:25 | Progress Note ---
DATE: December 13, 2017 CARDIOLOGY PROGRESS NOTE SUBJECTIVE: Patient is without any complaints this morning. She states that she feels a lot better. Denies chest pain, shortness of breath, or leg pain. OBJECTIVE VITAL SIGNS: Temperature 96.9, pulse 75, respiratory rate 18, blood pressure 120/65, oxygen saturation 98% on room air. GENERAL: Alert and oriented x3, resting comfortably on the side of the chair, does not appear to be in any acute distress. NECK: Supple. No JVD noted. CARDIOVASCULAR: Regular rate and rhythm. Normal S1, S2. LUNGS. Diminished breath sounds posterior left lower lobe. Otherwise clear to auscultation. No wheezing. No crackles or rhonchi. ABDOMEN: Soft, nontender. EXTREMITIES: Lower extremities, 2+ pedal pulses. Trace edema bilaterally. CARDIOVASCULAR MEDICATIONS 1. Plavix 75 mg p.o. daily. 2. Midodrine 5 mg p.o. t.i.d. 3. Aspirin 81 p.o. daily. 4. Atorvastatin 40 mg p.o. h.s. 5. Xarelto 20 mg p.o. daily. LABS: WBC 16.77, hemoglobin 8.2, hematocrit 24.9, platelets 304. Sodium 140, potassium 3.5, BUN 7, creatinine 0.63, magnesium 1.8. IMAGING: Chest x-ray with a stable left pleural effusion and persistent left hilar prominence. TELEMETRY: Sinus rhythm. ASSESSMENT 1. Acute limb ischemia, right lower extremity, status post tissue plasminogen activator administration, thrombolysis and thrombectomy of the right lower extremity, stenting of the right tibioperoneal artery. 2. History of lung nodule, status post left lower lobe lobectomy. 3. Hypertension. 4. Hyperlipidemia. 5. Suspected bleeding. 6. Anemia. RECOMMENDATIONS: Continue the above-listed cardiac medications. Patient will need to continue triple therapy for now. Monitor hemoglobin closely. Hematology has been consulted. This patient is a [employer] and cannot accept blood transfusion or blood products. Continue midodrine for hypotension. We will continue to follow this patient very closely. Dictated by: Leonie Melo NP Job#: [id number] JAMAR
[2017-12-13] MEDS ORDERED: IRON SUCROSE 100 MG in SODIUM CHLORIDE 0.9% 100 ML 100 ML IV ONE (14:00)
[2017-12-13] MEDS: RIVAROXABAN 20 MG TABLET PO SCH (16:59)
--- NOTE | 2017-12-13 18:00 | NUR ---
Sitting on chair, call light within reach. No s/s of acute distress noted. Report to be given to oncoming nurse.
[2017-12-13] MEDS: ATORVASTATIN 20 MG TAB PO SCH (22:09)
--- NOTE | 2017-12-13 23:37 | Consultation ---
DATE OF CONSULTATION: December 13, 2017 REQUESTING PHYSICIAN: Michael Gage MD SERVICE: Hematology/oncology. REASON FOR CONSULTATION: Evaluation and management of the patient with known diagnosis of lung cancer and anemia. HISTORY OF PRESENTING ILLNESS: Ms. Whitehead is a very pleasant 67-year-old female with multiple medical problems including known history of gastritis, osteoporosis, and recent diagnosis of localized lung cancer, for which she underwent left-sided lobectomy on December 01, 2017, now admitted through emergency department due to right limb ischemia and gangrene. Subsequently seen and evaluated by cardiology and underwent abdominal aortogram, demonstrated complete occlusion of the femoral artery resulting underwent primary thrombectomy. She also had stenting of the right tibioperoneal artery. Post-procedure, she had been started on anticoagulation, initially with heparin and then switched to Xarelto. Hematology/oncology has been consulted to assist the management especially due to anemia and recent history of lung cancer. Presently, patient is sitting comfortably, not in acute distress, breathing normally. She is still having pain. PAST MEDICAL HISTORY 1. Gastritis. 2. Recent history of localized lung cancer status post left-sided lobectomy. 3. Hypertension. 4. Hyperlipidemia. 5. Anemia. PAST SURGICAL HISTORY 1. Status post left-sided lobectomy on December 01, 2017. 2. Hysterectomy. 3. Appendectomy. 4. Right eye cataract. 5. Femoral thrombectomy in this admission. FAMILY HISTORY: Noncontributory. SOCIAL HISTORY: She denies illegal illicit drug use or history of smoking. ALLERGIES: CODEINE. CURRENT MEDICATIONS: Reviewed and as per electronic medical record. REVIEW OF SYSTEMS: A 14-point review of systems negative except as mentioned in history of presenting illness. PHYSICAL EXAMINATION VITAL SIGNS: Reviewed and as per electronic medical record. HEENT: PERRLA. Intact eye movement. Head atraumatic, normocephalic. NECK: Supple. CVS: S1, S2 audible. RESPIRATORY: Decreased bilateral air entry. ABDOMEN: Positive bowel sounds. EXTREMITIES: Moves all extremities. Negative cyanosis. NEURO: Patient is alert, awake. LABORATORY DATA: White blood cell count of 17.3, hemoglobin 8.4, hematocrit 35.7, platelets 284,000. BUN 9, creatinine 0.6. ASSESSMENT AND PLAN: Ms Whitehead is a very pleasant 67-year-old female with known history of hypertension, hyperlipidemia, gastritis, and recent diagnosis of lung cancer for which she underwent left-sided lobectomy, now presented with right lower extremity ischemia, subsequently seen and evaluated by cardiovascular team and underwent abdominal aortogram revealing femoral artery occlusion, requiring primary thrombectomy as well as thrombolysis. She also underwent stent placement in the right tibioperoneal artery. Patient's hemoglobin dropped from 11 to 8 range. Subsequently, hematology/oncology had been consulted to assist with the management. I have reviewed the record and discussed in length with the patient about her current disease status and importance of further workup. Patient is [employer], cannot have any blood transfusions or blood product. At this point recommendation would be to start patient on IV iron infusion, which will help her to reproduce her blood count, which has been lost. She probably will require outpatient monitoring and IV iron infusion. There is a possibility of GI bleeding specifically due to being on anticoagulation as well as other platelet therapy. Presently, she is on triple agent including Plavix, aspirin, and Xarelto. From lung cancer standpoint, she just had a left-sided lobectomy probably with a curative intent. I will obtain a record from [facility]. She will require postoperative baseline restaging scan. That can be performed in an outpatient setting. Patient has anticoagulation due to peripheral vascular disease and presently on triple agent including Plavix, aspirin, and Xarelto. Consideration would be given to see if one of the antiplatelet therapy can be discontinued. I will defer that decision to the cardiology team. Above plan has been discussed at length with the patient. Thank you for the consult. I will continue to be available. Please call with questions. Job#: [id number] MIGUEL
--- NOTE | 2017-12-14 00:02 | Consultation ---
DATE OF CONSULTATION: December 13, 2017 REASON FOR CONSULTATION: Leukocytosis. HISTORY OF PRESENT ILLNESS: This patient is a 67-year-old female. She recently diagnosed with a lung mass. Apparently, initial biopsy was negative, but a PET scan was positive, so she was sent to the medical center. She underwent left upper lung lobectomy. Apparently, it was malignant. The patient also had a severe peripheral vascular disease. Patient had almost ischemic right leg, and the patient underwent a stent placement. The patient is currently admitted because she is not feeling well. Patient is weak. She was admitted on December 10 with chief complaint of right leg numbness and tingling. The patient was admitted. She was found to have clinical limb ischemia. She was seen by Dr. Girard, underwent abdominal aortogram, catheter placed in the left femoral artery, to the right superficial femoral artery, and the primary thrombectomy of the right femoral artery was done. She was in ICU. Currently, she is on floor, but it was noted she had leukocytosis and infectious disease was consulted. The patient at the present time has no complaints. REVIEW OF SYSTEMS: HEENT: Negative. PULMONARY: Negative. CARDIAC: Negative. : Negative. GI: Negative. SKIN: There is no rash. EXTREMITIES: Her leg feels better. All her symptoms at the present time are negative. PAST MEDICAL HISTORY: As above. PAST SURGICAL HISTORY: Hysterectomy, appendectomy, right eye cataract surgery . ALLERGIES: NKA. SOCIAL HISTORY: Currently, no smoking, drug abuse, alcohol abuse. FAMILY HISTORY: Unremarkable. LABORATORY DATA: Blood cultures are negative. White count when she first came was 14.2, went up to 23, coming down slowly to 16.7. Hemoglobin 8.2, hematocrit 24. Her sodium 140, potassium 3.5, creatinine 0.63. PHYSICAL EXAMINATION: GENERAL: She is currently alert, oriented, does not seem to be in acute distress. VITALS: Stable. Currently afebrile. HEENT: She is not icteric. NECK: Supple. CHEST: Clear. HEART: S1, S2. No murmur. ABDOMEN: Soft. Bowel sounds present. EXTREMITIES: No edema. SKIN: No rash. IMPRESSION AND PLAN: 1. Leukocytosis, I think it is reactive from the ischemic leg and the thrombectomy. She is clinically doing well, can discontinue antibiotic. 2. Status post left upper lobe lobectomy with atelectasis with left pleural effusion. Consider thoracocentesis to rule out malignancy. 1. If continues to improve, we will discontinue antibiotic and reassess. Job#: [id number] JAMAR
[2017-12-14 00:32] VITALS: BP 130/71
[2017-12-14 04:14] LABS: BASOPHILS # (AUTO) 0.1 (0.0-0.1); BASOPHILS % 0.3 % (0.0-1.0); EOSINOPHILS # (AUTO) 0.3 (0.0-0.4); EOSINOPHILS % 1.9 % (0.0-6.0); HEMATOCRIT 25.3 % (34.2-44.1); HEMOGLOBIN 8.3 g/dL (12.0-16.0); LYMPHOCYTES # (AUTO) 3.1 (1.0-3.2); MEAN CORPUSCULAR HEMOGLOBIN 30.1 pg (28-32); MEAN CORPUSCULAR HGB CONC 32.8 g/dL (31-35); MEAN CORPUSCULAR VOLUME 91.7 fL (81-99); MONOCYTES # (AUTO) 0.7 (0.2-0.8); MONOCYTES % 4.5 % (4.4-11.3); NEUTROPHILS # (AUTO) 11.2 (2.1-6.9); NEUTROPHILS % 71.9 % (38.7-80.0); PLATELET COUNT 347 x10e3/uL (140-360); RED BLOOD COUNT 2.76 x10e6/uL (3.6-5.1); RED CELL DISTRIBUTION WIDTH 14.3 % (11.7-14.4)
[2017-12-14 04:29] LABS: ANION GAP 13.5 mmol/L (8-16); BLOOD UREA NITROGEN 8 mg/dL (7-26); BUN/CREATININE RATIO 12 (6-25); CALCIUM 8.8 mg/dL (8.4-10.2); CARBON DIOXIDE 21 mmol/L (22-29); CHLORIDE 110 mmol/L (98-107); CREATININE, SERUM 0.65 mg/dL (0.57-1.11); EST GLOMERULAR FILTRATION RATE > 60 ML/MIN (60-); GLUCOSE 103 mg/dL (74-118); MAGNESIUM 1.9 MG/DL (1.3-2.1); POTASSIUM 3.5 mmol/L (3.5-5.1); SODIUM 141 mmol/L (136-145)
[2017-12-14] MEDS ORDERED: SODIUM CHLORIDE 0.9% 250ML 250 ML ONE ×2 (05:12→05:34)
[2017-12-14 05:32] VITALS: BP 125/64
[2017-12-14] MEDS: CEFEPIME HCL 1 GM VIAL IV SCH (05:38)
[2017-12-14] MEDS: AZITHROMYCIN 500MG/NS 250 ML 250 ML IV SCH (05:38)
--- NOTE | 2017-12-14 07:02 | NUR ---
Received patient sitting on chair, call light within reach. AAOX4 to time,person, place, situation. Respirations even and unlabored. Instructed patient to use call light for assistance. Voiced understanding.
[2017-12-14] MEDS ORDERED: MIDODRINE HCL2.5 MG PO (07:21)
[2017-12-14] MEDS ORDERED: ASPIRIN CHEW81 MG PO (07:21)
[2017-12-14] MEDS ORDERED: XARELTO10 MG PO (07:21)
[2017-12-14] MEDS ORDERED: PLAVIX75 MG PO (07:21)
--- NOTE | 2017-12-14 07:39 | NUR ---
Patient condition throughout the night was stable, patient endorsed to next shift for continuity of care.
[2017-12-14] MEDS: ASPIRIN 81 MG CHEW TAB PO SCH (08:03)
[2017-12-14] MEDS: LORATADINE 10 MG TAB PO SCH (08:03)
[2017-12-14] MEDS: POLYETHYLENE GLYCOL 3350 17 GM PACK PO SCH (08:03)
[2017-12-14] MEDS: DOCUSATE SODIUM 100 MG CAP PO SCH ×2 (08:03→16:32)
[2017-12-14] MEDS: FERROUS SULFATE 325 MG TAB PO SCH ×2 (08:03→16:32)
[2017-12-14] MEDS: MIDODRINE 2.5 MG TAB PO SCH ×3 (08:03→16:32)
[2017-12-14] MEDS: ASCORBIC ACID 500 MG TAB PO SCH ×2 (08:03→16:32)
[2017-12-14] MEDS: PANTOPRAZOLE 40 MG 10ML VIAL IV SCH (08:03)
[2017-12-14] MEDS: CLOPIDOGREL BISULFATE 75 MG TAB PO SCH (08:03)
[2017-12-14] MEDS: SENNOSIDES 8.6 MG TAB PO SCH (08:03)
[2017-12-14 08:05] VITALS: BP 121/69
[2017-12-14 08:10] VITALS: BP 121/69
[2017-12-14 11:26] VITALS: BP 116/66
--- NOTE | 2017-12-14 14:48 | Progress Note ---
DATE: December 14, 2017 CARDIOLOGY PROGRESS NOTE SUBJECTIVE: Patient is doing well. She denies any lower extremity pain. She denies any chest pain or shortness of breath. OBJECTIVE VITAL SIGNS: Temperature is 97.5, heart rate is 72, respirations are 20, oxygen saturation 97% on room air, blood pressure is 116/66. GENERAL: She is a well-appearing, well-built woman lying in her chair at bedside. NECK: No JVD. No bruits. CARDIOVASCULAR: Regular rate and rhythm. Normal S1 and S2. No murmurs. LUNGS: Clear to auscultation. On anterior examination, there are diminished breath sounds over the left lower lobe. ABDOMEN: Soft, nontender and nondistended. EXTREMITIES: No cyanosis or edema. VASCULAR: Two plus pulses. SKIN: Dry and warm. NEUROLOGIC: No focal deficits noted. LABORATORY DATA AND IMAGING: Were reviewed. Notable for a hemoglobin of 8.3. Telemetry monitoring reveals normal sinus rhythm. IMPRESSION 1. Acute limb ischemia of the right lower extremity: Status post tPA administration, thrombectomy and stenting of the right tibioperoneal artery. 2. History of lung nodule: Status post left lower lobe lobectomy. 3. Hypertension. 4. Hyperlipidemia. 5. Anemia. 6. Lutheran status. RECOMMENDATIONS: Will continue current cardiovascular medications, including aspirin, Plavix and Xarelto. She has no external sources of bleeding. Her hemoglobin remains stable. Discussed the risks and benefits with the patient. She agrees to continue. The patient was started on midodrine for blood pressure support. Will continue this as tolerated. Job#: [id number] THIAGO
[2017-12-14 15:54] VITALS: BP 141/75
--- NOTE | 2017-12-14 16:00 | NUR ---
Paged to notify of discharge. Waiting for call back
--- NOTE | 2017-12-14 16:20 | Discharge Summary ---
ADMISSION DIAGNOSES 1. Right leg critical limb ischemia, status post thrombectomy of the femoral artery and initiation of transcatheter lysis. 2. Left lung nodule, status post lobectomy 3 days ago at [facility]. 3. Overweight. 4. Acute transaminitis. 5. Normocytic anemia. 6. Small to moderate left-sided pleural effusion. DISCHARGE DIAGNOSES 1. Right leg critical limb ischemia, status post thrombectomy of the femoral artery and initiation of transcatheter lysis. 2. Left lung nodule, status post lobectomy 3 days ago at [facility]. 3. Overweight. 4. Acute transaminitis. 5. Normocytic anemia. 6. Small to moderate left-sided pleural effusion. 7. Hypokalemia. 8. Hypocalcemia. 9. Ruled out gastrointestinal bleed. 10. Anemia. 11. Leukocytosis. HISTORY: The patient has a history of gastritis, sinusitis, osteoporosis, left lung nodule, status post left-sided lobectomy 3 days ago. PAST SURGICAL HISTORY: The patient has surgical history of hysterectomy, appendectomy, right eye cataract surgery. HOSPITAL COURSE: A 67-year-old female who was found to have a lung nodule and underwent left-sided lobectomy at [facility] by Dr. John Mabry on Thursday. The patient returned home. When she attempted to walk, she felt burning of the right hip which radiated down her right leg. Fifty minutes later the right leg started tingling and became completely numb. She was unable to walk, called her primary care physician who recommended she come to the ER. Upon admission, she was found to have critical limb ischemia and underwent a thrombectomy with Dr. Gage via abdominal aortogram. There was catheter placement at the left femoral artery, to the right superficial femoral artery and primary thrombectomy of the right femoral artery and initiation of transcatheter lysis. The patient was admitted to the ICU. On admission, an echo was done that showed EF of 55% to 60% with mild MR and TR. The right lower extremity was negative for DVT. The patient was found to be in atrial fibrillation. On admission, the patient had a chest x-ray that showed a small to moderate left-sided effusion. No bony abnormalities. CT of the chest done on 12/11 showed left upper lobectomy with atelectasis anteriorly and small loculated hydro pneumothorax anteriorly. Pulmonology was consulted. He stayed in touch with Dr. John Mabry at [facility]. Urine culture was negative. Blood culture was negative. The patient's WBC remained elevated likely due to the thrombectomy. She remained afebrile. Stool for blood was negative. She also remained anemic. The patient was a Yazidi and did not want blood. She will follow up with Dr. Morel in 10 days for iron infusions. Per cardiology, the patient will be on aspirin, Plavix and Xarelto at the time of discharge. She also needed Midodrine to keep her blood pressure up. She will be discharged home in stable condition with bruising of the left groin. She will follow up with pulmonary in 10 days. She will follow up with hematology/oncology in 10 days, primary care in one to two weeks and cardiology as discussed. The patient understands discharge instructions and agrees to plan. Vital signs stable. Patient afebrile. Dictated by: Misty Mariee NP AKOSUA JEFFERY MD Job#: [id number]
--- NOTE | 2017-12-14 16:30 | NUR ---
IMM letter delivered and explained to pt. She verbalized understanding. Signed copy placed in chart. Copy given to pt.
[2017-12-14] MEDS: RIVAROXABAN 20 MG TABLET PO SCH (16:32)
--- NOTE | 2017-12-14 17:40 | NUR ---
Repaged to notify of discharge orders. Awaiting for call
--- NOTE | 2017-12-14 18:11 | NUR ---
Per painter chassis. Patient okay to discharge from cardio standpoint.
--- NOTE | 2017-12-14 18:12 | NUR ---
Misty Mariee NP aware patient has been cleared by building repair maintenance supervisor.
--- NOTE | 2017-12-14 18:45 | NUR ---
Discharge instruction instructions given to patient. Waiting for ride.
--- NOTE | 2017-12-14 19:00 | NUR ---
Report give to Juanita RN of patient's status. Aware of discharged orders. Aware PICC line and telemetry. to be discontinued prior to discharge. Resting in bed. No s/s of acute distress noted.
--- NOTE | 2017-12-14 19:42 | NUR ---
discharged patient home with all belongings and prescriptions. vital sign stable at this time. D/c Picc line, tip intact, pressure dressing applied.
--- NOTE | 2017-12-14 20:29 | Progress Note ---
DATE: December 14, 2017 CHIEF COMPLAINT: Patient with anemia and recent diagnosis of lung cancer. VITAL SIGNS: Reviewed. LABORATORY DATA: Reviewed. Patient is a 67-year-old very pleasant female, who was recently diagnosed with non-small cell lung cancer, which was localized to the left lung subsequently underwent lobectomy. She was hospitalized due to severe peripheral vascular disease and ischemia, underwent thrombectomy and stenting. Hematology/oncology consultation was obtained due to anemia and recent diagnosis of lung cancer. She was given IV iron infusion with improved count. She has been started on anticoagulation with Xarelto. She is going to be discharged and will follow up in an outpatient setting. Case has been discussed at length with Dr. Ortega. Job#: [id number] CQ MTDD
--- NOTE | 2018-02-24 14:27 | Operative Report ---
DATE OF PROCEDURE: December 09, 2017 INDICATIONS FOR PROCEDURE: Acute limb ischemia. PRE-SEDATION ASSESSMENT: The patient's medical history, social history, previous experience with anesthesia was reviewed prior to the procedure. Patient was deemed to be an appropriate candidate for moderate sedation. The risks, the benefits and the alternatives of the procedure were explained the patient. Informed consent was obtained and documented in the medical record. MEDICATIONS: Please see nursing notes for medications administered during the procedure. PROCEDURES PERFORMED 1. Catheter placement in abdominal aorta. 2. Catheter placement, third-order. 3. Abdominal aortogram. 4. Selective angiogram of bilateral lower extremities. 5. Primary thrombectomy of the right common femoral and superficial femoral artery, TP and peroneal arteries. 6. Percutaneous transluminal angioplasty and stenting of right peroneal artery. PROCEDURE DETAILS: Patient was brought to the cardiac catheterization laboratory in a fasting state. Patient already had a sheath in place in the left groin from a previous procedure. The tPA catheter was then placed in the right common femoral artery along with up and over sheath. We tired the tPA catheter using a 0.035 guidewire and a tPA catheter was then removed. Omni Flush catheter was then advanced into the right common femoral artery and selective angiography of the right lower extremity was performed, which showed 100% thrombotic occlusion of the right common femoral, ostial superficial femoral and part of the ostium of the profunda. We performed primary thrombectomy first using a Pronto device followed by multiple passes of Angio-Jet followed by more use of Pronto. Subsequent angiography showed additional thrombosis of the right peroneal artery. Further Angio-Jet and Pronto of this artery was performed. There was an underlying lesion of the right peroneal artery with 80% to 90% occlusion. Balloon angioplasty was performed using Ultra Verse 2.5 x150 mm balloon followed by 2 overlapping 2.5 x 38 and 2.5 x 34 mm Resolute Salkum stents deployed at high pressure. This resulted in an excellent angiographic result with no residual thrombus, dissection or spasm with 3-vessel runoff to the right foot. We then withdrew the catheter over the wire, and long up and over sheath was exchanged for a short 6-Bermudian sheath. Angiography of the left lower extremity was performed. It showed no significant obstructive peripheral arterial disease with good 3-vessel runoff. The left groin was cleaned with Chlorhexidine and closed with ProGlide vascular closure device without any significant complications. The patient tolerated the procedure well. There were no immediate complications. SIGNIFICANT FINDINGS 1. No significant disease of the bilateral iliacs. 2. 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 No significant peripheral artery disease of the left lower extremity. SPECIMEN REMOVED: None. GRAFTS OR IMPLANTS: Two drug-eluting stents and ProGlide vascular closure device. ESTIMATED BLOOD LOSS: 150 mL. COMPLICATIONS: None. FINAL RECOMMENDATIONS: Dual antiplatelet therapy with aspirin and Plavix. Add Xarelto given acute limb ischemia due to thrombosis. Patient to follow up in the clinic 2 weeks post discharge. Job#: [id number] THIAGO
== END 2017-12-14 19:46 | disposition home or self-care (01) | DRG 271 ==
LOC: ER 17:33 → CATH LAB 20:14 → ICU 22:37 → MED/SURG2 12-12 14:33
PROVIDERS: ADMIT Internal Medicine; ATTEND Internal Medicine
PROC: B4001ZZ Plain Radiography of Abdominal Aorta using Low Osmolar Contrast (ICD-10-PCS; principal; 2017-12-09)
PROC: 04CK3ZZ Extirpation of Matter from Right Femoral Artery, Percutaneous Approach (ICD-10-PCS; 2017-12-09)
PROC: 3E05317 Introduction of Other Thrombolytic into Peripheral Artery, Percutaneous Approach (ICD-10-PCS; 2017-12-09)
PROC: 04CR3ZZ Extirpation of Matter from Right Posterior Tibial Artery, Percutaneous Approach (ICD-10-PCS; 2017-12-09)
PROC: 04CT3ZZ Extirpation of Matter from Right Peroneal Artery, Percutaneous Approach (ICD-10-PCS; 2017-12-09)
PROC: 047 Lower Arteries, Dilation (ICD-10-PCS; 2017-12-09)
PROC: 02HV33Z Insertion of Infusion Device into Superior Vena Cava, Percutaneous Approach (ICD-10-PCS; 2017-12-11)
DX: I82.411 Acute embolism and thrombosis of right femoral vein (principal); J90 Pleural effusion, not elsewhere classified; C34.12 Malignant neoplasm of upper lobe, left bronchus or lung; I82.431 Acute embolism and thrombosis of right popliteal vein; R91.8 Other nonspecific abnormal finding of lung field; E66.3 Overweight; Z68.26 Body mass index [BMI] 26.0-26.9, adult; R74.0 Nonspecific elevation of levels of transaminase and lactic acid dehydrogenase [LDH]; D64.9 Anemia, unspecified; Z88.5 Allergy status to narcotic agent; E78.5 Hyperlipidemia, unspecified; I10 Essential (primary) hypertension; E83.51 Hypocalcemia; K59.00 Constipation, unspecified; D72.829 Elevated white blood cell count, unspecified; E87.6 Hypokalemia; D50.0 Iron deficiency anemia secondary to blood loss (chronic)
CPT/HCPCS: 36247; 36415; 36569; 37185; 37211; 37230; 71045; 71250; 75625; 75710; 75716; 80048; 80053; 80061; 81001; 82270; 82550; 82553; 82607; 82728; 82746; 83540; 83605; 83735; 84466; 84484; 85025; 85610; 85730; 86850; 86900; 87040; 87086; 93005; 93306; 93926; 93971; 96366; 97139; 99284; C1725; C1766; C1769; C1874; J0456; J0610; J0692; J1644; J1756; J2001; J2250; J2270; J2405; J2997; J3370; J7030; J7050; Q9967